=== PATIENT | female | born 1990 | race Caucasian/White ===

== ENCOUNTER 2024-09-09 20:39 | Inpatient (IN) ==
--- OUTSIDE RECORDS SUMMARY | 2024-09-09 20:44 | External Medical Summary | Summary of Care ---
Author Name Unknown Organization [facility] Address [address] [place] [address] Phone [phone] Care Team Providers Care Director Of Accounting Name Role Phone Carlo Redding Primary Care Provider [phone] Encounter Details Date Type Department Care Team (Late st Contact Info) Description 06/07/2024 Population Health External Data Unspecified Department Allergies No known active allergiesdocumented as of this encounter (statuses as of 06/07/2024) Medications Citalopram Hydrobromide 10 MG Oral Tablet (CeleXA) Take by mouth 1 Tablet in the morning. 90 Tablet 2 2 Active Omeprazole 40 MG Oral Capsule Delayed Release (PriLOSEC) Take by mouth 1 Capsule in the morning. 1 hour before the first meal of the day. 90 Capsule 2 2 Active Amphetamine-Dextr oamphet ER 15 MG Oral Capsule Extended Release 24 Hour Take by mouth 1 Capsule in the morning. 30 Capsule 2 Active documented as of this encounter (statuses as of 06/07/2024) Active Problems Problem Noted Date Diagnosed Date Attention deficit disorder 10/01/2021 Gastro-esophageal reflux disease without esophag itis 10/01/2021 Anxiety and depression 10/01/2021 documented as of this encounter (statuses as of 06/07/2024) Social History Tobacco Use Types Packs/Day Years Used Date Smoking Tobacco: Never Smokeless Tobacco: Never Utilities Answer Date Recorded Do you have trouble paying y our heating, water, or electric bill? (Adult - for ages 18 years and over) Not on file 11/01/2023 Is your family able to pay t he heat, water, or electric bill? (Household - for ages 0-17 years) Not on file 11/01/2023 Does your family have access to good internet? (Household - for ages 0-17 years) Not on file 11/01/2023 Social Connections Answer Date Recorded How often do you feel lonely or isolated from those around you? (Adult - for ages 18 years and over) Not on file 11/01/2023 Comments Unknown Sex and Gender Information Value Date Recorded Sex Assigned at Not on file Legal Sex Female 5:41 AM EST Gender Identity Not on file Sexual Orientation Not on file documented as of this encounter Plan of Treatment Health Maintenance Due Date Last Done Comments Depression Monitoring 2001 HIV Screening 2004 Hepatitis C Screening 08/01/2007 Hepatitis B Vaccine (1 of 3 - 19+ 3-dose series) 2008 Pap Smear 2010 Cervical Cancer Screening 08/01/2019 HPV/Co-Test 08/01/2019 COVID-19 Vaccine (2 - 2023-2 5 season) 2024 12/12/2020 Influenza Vaccine (FLU shot) (#1) 2024 DTap/Tdap Vaccines (2 - Td o r Tdap) 10/24/2031 10/23/2021 HPV (Gardasil) Vaccine Aged Out No lo nger eligible based on patient's age to complete this topic MENINGOCOCCAL (MENACTRA/MENVEO) Aged Out No longer eligible based on patient's age to complete this topic Pneumococcal Vaccine: Pediat rics (0 to 5 Years) and At-Risk Patients (6 to 18 Years and 19+ Years) Aged Out No longer eligible b ased on patient's age to complete this topic documented as of this encounter Medical Devices Not on filedocumented as of this encounter Care Teams Director Of Accounting Relationship Specialty Start Date End Date Carlo Redding DO [address] [place] [address] Way GONZALO Lopez [id number] PCP - General Internal Medicine 01/07/22 documented as of this encounter
--- NOTE | 2024-09-09 21:18 | Emergency Department Note ---
Impression & Plan Auditory hallucinations ED Provider Note HISTORY OF PRESENT ILLNESS: Patient is a 34-year-old female presenting with depression and obsessive thoughts. Patient reports for the last few days she has been having intrusive thoughts. Reports that she has thoughts of her niece being stabbed or her dog being stabbed. Denies any plan to do these things. Reports that these seem to be intrusive thoughts that are on a continuous loop in her head. Before she has not been sleeping well. Denies any suicidal or homicidal ideation. She is on bupropion. She has not had any recent medication changes. She denies any previous inpatient psychiatric admissions. She is tearful on examination. Denies any recent triggers for these thoughts. She is new to the area and has not established with outpatient provider at this time. Patient does seem to be responding to internal stimuli. She jerks her head [id number] during conversation and states that this is to "get the voices to go away." ROS: as above PHYSICAL EXAM: Constitutional: Patient appears in no acute distress. HENT: Head: Normocephalic and atraumatic. Eyes: EOMI, PERRL Mouth/Throat: Mucous membranes moist. Neck: Trachea midline. Neck supple. Musculoskeletal: No edema, tenderness or deformity noted. Skin: Warm and dry. No rash, erythema, pallor or cyanosis Psychiatric: Tearful. Flat affect. Neurological: Alert and keenly responsive. CN II-XII grossly intact, moving all extremities equally and fully. MDM: - Vitals signs showed tachycardia - History obtained via patient. History as above. - Chronic conditions affecting care: Depression/anxiety - Differential diagnoses include, but are not limited to: UTI; acute psychosis; drug intoxication; alcohol intoxication - External medical records reviewed. - Laboratory workup interpreted by myself showed slight leukocytosis (WBC 11.81); stable electrolytes; slight hyperglycemia (glucose 67); negative hCG; negative alcohol/acetaminophen/salicylate levels - COVID negative - UA negative for infection. - UDS positive for MDMA. However, patient is on Ritalin. - Inpatient psychiatry unit, [address] is requesting that a CT of the head be obtained, given patient's new auditory hallucinations. - CT head wo contrast negative for acute intracranial pathology. - Patient was agreeable to inpatient psychiatric admission. A 201 was signed. Patient was accepted to inpatient psychiatric unit at [facility], [address] [place] [address], for further evaluation and management. ASSESSMENT AND PLAN: Diagnosis: Auditory hallucinations Plan: admit to [address] [place] [address] Past Med/Surg History Problem List (Updated 09/10/24 @ 00:51 by Ambar Romero MD) Auditory hallucinations (Acute) Generalized anxiety disorder Depression ADHD Surgical History H/O oral surgery Family History Grandmother (Maternal) Myocardial infarction Mother Myocardial infarction Uncle Stroke Denies family history of Ovarian cancer Prostate cancer Breast cancer Colorectal cancer Social History Smoking Status: Former smoker Tobacco Type: Cigarettes Age Started Using Tobacco: 17; Age Quit Using Tobacco: 24; packs per day: 0.25; Second Hand Exposure: No; Hx Alcohol Use: No Hx Substance Use: No Preferred Language: Telugu Visual Impairment: No Limitations Hearing Ability: Normal marital status: Single Current Living Situation: Significant Other current occupational status: unemployed Feels Safe at Home: Yes Childhood Exposure to Second-Hand Smoke: Yes Dental Care, Regularly: Yes Physical Activity Frequency: Daily Seatbelt Use: always Sunscreen Use: Yes Gender Identity: Female Allergies Allergies Allergy/AdvReac Type Severity Reaction Status Date / Time No Known Allergies Allergy Verified 05/17/24 07:44 Home Meds Previous Rx's Medication Instructions Recorded bupropion HCl 150 mg 24 hr tablet, 150 mg PO QAM #90 tabs 05/17/24 extended release fluoxetine 20 mg capsule 20 mg PO DAILY #90 caps 05/17/24 lorazepam 0.5 mg tablet 0.5 mg PO DAILY PRN anxiety #30 07/27/24 tabs dextroamphetamine-amphetamine ER 30 mg PO QAM #30 caps 08/13/24 30 mg 24hr capsule,extend release (Adderall XR) Results & Data (ED) Vital Signs Vital Signs - 24 hr 09/09/24 20:46 09/09/24 22:46 09/10/24 00:00 Temperature 36.3 C L Temperature Source Temporal Artery Scan Pulse Rate 106 H Pulse Rate [Right Finger] 91 H 84 Pulse Rhythm [Right Finger] Regular Pulse Strength [Right Finger] Normal Normal Respiratory Rate 18 18 16 Respiratory Effort / Characteristics Non-Labored Spontaneous Non-Labored Non-Labored Spontaneous Respiratory Depth Normal Normal Normal Respiratory Pattern Regular Regular Blood Pressure 111/80 Blood Pressure [Right Arm] 121/86 115/84 Blood Pressure Mean 90 Blood Pressure Mean [Right Arm] 97 94 Blood Pressure Position [Right Arm] Sitting Sitting Pulse Oximetry 99 100 100 Oxygen Delivery Method Room Air Room Air Room Air Sepsis Recent Fever Within 48 Hours No Sepsis New/Unexplained Change in Mental Status No Sepsis Action Taken by Nursing No Action Required Laboratory Data 09/09/24 21:07 09/09/24 21:07 Lab Results 09/09/24 Range/Units 21:07 WBC 11.81 H (4.8-10.8) K/ul RBC 4.57 (4.20-5.40) M/uL Hgb 14.5 (12.0-16.0) g/dl Hct 42.8 (37.0-47.0) % MCV 93.7 (80.0-100.0) fL MCH 31.7 (25.0-34.0) pg MCHC 33.9 (32.0-36.0) g/dL RDW Std Deviation 41.0 (36.4-46.3) fL RDW Coeff of Osiris 11.9 (11.5-14.5) % Plt Count 407 H (130-400) K/uL MPV 10.0 (9.4-12.4) fL Immature Gran % (Auto) 0.3 % Neut % (Auto) 55.1 % Lymph % (Auto) 34.1 % [place] % (Auto) 9.3 % Eos % (Auto) 0.6 % Baso % (Auto) 0.6 % Neut # (Auto) 6.51 H (1.40-6.50) K/uL Lymph # (Auto) 4.03 H (1.20-3.40) K/uL [place] # (Auto) 1.10 H (0.11-0.59) K/uL Eos # (Auto) 0.07 (0.00-0.50) K/uL Baso # (Auto) 0.07 (0.00-0.20) K/uL Immature Gran # (Auto) 0.03 (0.01-0.20) K/uL Sodium 140 (136-145) mmol/L Potassium 3.7 (3.5-5.1) mmol/L Chloride 104 (98-107) mmol/L Carbon Dioxide 28 (21-32) mmol/L Anion Gap 8 (3-11) BUN 13 (6-23) mg/dl Creatinine 1.02 (0.6-1.2) mg/dl Est Cr Clr Drug Dosing 77.7 ml/min eGFR 73.58 BUN/Creatinine Ratio 12.7 (10-20) Glucose 67 L (70-99(Fasting)) mg/dl Calcium 9.1 (8.6-10.3) mg/dl Total Bilirubin 0.4 (0.2-1.0) mg/dl AST 16 (13-39) U/L ALT 16 (7-52) U/L Alkaline Phosphatase 47 (34-104) U/L Total Protein 7.7 (6.0-8.3) gm/dl Albumin 4.6 (3.4-5.0) gm/dl Globulin 3.1 (2.5-4.0) gm/dl Albumin/Globulin Ratio 1.5 (0.9-2) TSH 1.886 (0.300-4.500) uIu/ml HCG, Qual Negative (Negative) Urine Color Yellow Urine Appearance Cloudy A (Clear) Urine pH 5.0 (4.5-7.5) Ur Specific [place] 1.035 H (1.000-1.030) Urine Protein Trace H (Negative) Urine Glucose (UA) Negative (Negative) Urine Ketones Trace H (Negative) Urine Blood Trace H (Negative) Urine Nitrite Negative (Negative) Urine Bilirubin Negative (Negative) Urine Urobilinogen Negative (Negative) Ur Leukocyte Esterase Negative (Negative) Urine WBC (Auto) 0-5 (0-5) /hpf Urine RBC (Auto) 0-2 (0-2) /hpf U Hyaline Cast (Auto) 0-2 (0-2) /lpf U Epithel Cells (Auto) 11-20 H (0-2) /hpf Urine Bacteria (Auto) None Seen (None Seen) Calcium Oxalate Crystal Present A (None Prsent) Salicylates < 3.0 L (3.0-30) mg/dl Urine Opiates Screen Neg (Neg) Ur Methadone, Qual Neg (Neg) Urine Fentanyl Screen Neg (Neg) Acetaminophen < 3 L (10-30) ug/ml Urine Barbiturates Neg (Neg) Ur Phencyclidine (PCP) Neg (Neg) U Amphetamin/Meth Scrn Neg (Neg) MDMA (Ecstasy) Screen Pos H (Neg) U Benzodiazepines Scrn Neg (Neg) Ur Cocaine Metabolite Neg (Neg) U Marijuana (THC) Screen Neg (Neg) Ethyl Alcohol mg/dL < 10.0 (<10.0) mg/dl SARS-CoV-2, RNA, NAAT NEGATIVE (NEGATIVE) Imaging Data Radiologist's Impression: Head CT 09/09/24 23:53 EXAM: CT head/brain wo con CLINICAL HISTORY: auditory hallucination TECHNIQUE: Multiple axial images are obtained from the skull base to the vertex without contrast. CT scan was performed according to ALARA (as low as reasonably achievable). COMPARISON: none FINDINGS: The brain shows normal morphology, attenuation, and volume for age. No evidence of space occupying lesion, hemorrhage, edema, mass effect, midline shift, extra axial collection, or hydrocephalus is noted. Ventricles, sulci, and basal cisterns are symmetric and normal in size and configuration. The tenorio-white matter differentiation is preserved. Visualized paranasal sinuses and mastoid air cells are well aerated. Orbital contents are within normal limits. Bony structures are intact. IMPRESSION: 1. No evidence of acute intracranial abnormality is demonstrated Electronically signed by Vasquez Medrano 09-10-2024 12:24 AM Discharge Plan Visit Data Chief Complaint: Mental Health Evaluation Stated Complaint: MENTAL HEALTH ISSUES ED Provider: Ambar Romero Discharge Problem: Auditory hallucinations Forms Stand Alone Forms: [facility], Suicide Prevention Resources Prescriptions Prescriptions: No Action lorazepam 0.5 mg tablet 0.5 mg PO DAILY PRN (Reason: anxiety) Qty: 30 0RF dextroamphetamine-amphetamine [Adderall XR] 30 mg capsule,extended release 24hr 30 mg PO QAM Qty: 30 0RF fluoxetine 20 mg capsule 20 mg PO DAILY Qty: 90 3RF bupropion HCl 150 mg tablet extended release 24 hr 150 mg PO QAM Qty: 90 3RF Referrals Referrals: Suri Cheng MD [Primary Care Provider] -
[2024-09-09 21:38] LABS: Appearance Urine Cloudy (Clear); Bacteria Urine Automated None Seen (None Seen); Bilirubin Urine Negative (Negative); Blood Urine Trace (Negative); Calcium Oxalate Crystals Urine Present (None Prsent); Cast Urine Automated 0-2 /lpf (0-2); Color Urine Yellow; Glucose Urine UA Negative (Negative); Ketones Urine Trace (Negative); Leukocyte Esterase Urine Negative (Negative); Nitrite Urine Negative (Negative); Protein Urine Trace (Negative); RBC Urine Automated 0-2 /hpf (0-2); Specific Gravity Urine 1.035 (1.000-1.030); Urobilinogen Urine Negative (Negative); WBC Urine Automated 0-5 /hpf (0-5)
[2024-09-09 21:40] LABS: Albumin Globulin Ratio 1.5 (0.9-2); Albumin Level 4.6 gm/dl (3.4-5.0); BUN Creatinine Ratio 12.7 (10-20); Bilirubin,Total 0.4 mg/dl (0.2-1.0); Calcium 9.1 mg/dl (8.6-10.3); Creatinine Clr Calc Pharmacy 77.7 ml/min; Globulin 3.1 gm/dl (2.5-4.0); Potassium 3.7 mmol/L (3.5-5.1); Total Protein 7.7 gm/dl (6.0-8.3)
[2024-09-09 21:41] LABS: Acetaminophen < 3 ug/ml (10-30); Salicylate < 3.0 mg/dl (3.0-30)
[2024-09-09 21:43] LABS: Pregnancy Test, Serum Negative (Negative)
[2024-09-09 21:52] LABS: Basophils # (auto) 0.07 K/uL (0.00-0.20); Basophils % (auto) 0.6 %; Eosinophils # (auto) 0.07 K/uL (0.00-0.50); Eosinophils % (auto) 0.6 %; Hematocrit (blood only) 42.8 % (37.0-47.0); Hemoglobin 14.5 g/dl (12.0-16.0); Immature Granulocytes # (auto) 0.03 K/uL (0.01-0.20); Immature Granulocytes % (auto) 0.3 %; Lymphocytes # (auto) 4.03 K/uL (1.20-3.40); Lymphocytes % (auto) 34.1 %; Mean Corpuscular Hemoglobin 31.7 pg (25.0-34.0); Mean Corpuscular Hgb Conc 33.9 g/dL (32.0-36.0); Mean Corpuscular Volume 93.7 fL (80.0-100.0); Monocytes % (auto) 9.3 %; Neutrophils # (auto) 6.51 K/uL (1.40-6.50); Neutrophils % (auto) 55.1 %; Platelet Count 407 K/uL (130-400); RDW Coefficient of Variation 11.9 % (11.5-14.5); Red Blood Count 4.57 M/uL (4.20-5.40); White Blood Count 11.81 K/ul (4.8-10.8)
[2024-09-09 21:54] LABS: Thyroid Stimulating Hormone 1.886 uIu/ml (0.300-4.500)
[2024-09-09 22:28] LABS: Amphetamines+Metham, Urine Neg (Neg); Barbiturates, Urine Neg (Neg); Benzodiazepine, Urine Neg (Neg); Cocaine, Urine Neg (Neg); Fentanyl, Urine Neg (Neg); MDMA (Ecstacy), Urine Pos (Neg); Marijuana, Urine Neg (Neg); Methadone, Urine Neg (Neg); Opiate, Urine Neg (Neg); Phencyclidine, Urine Neg (Neg)
[2024-09-10 00:08] VITALS: RESP 16
--- NOTE | 2024-09-10 00:24 | CT Scan Report ---
EXAM: CT head/brain wo con CLINICAL HISTORY: auditory hallucination TECHNIQUE: Multiple axial images are obtained from the skull base to the vertex without contrast. CT scan was performed according to ALARA (as low as reasonably achievable). COMPARISON: none FINDINGS: The brain shows normal morphology, attenuation, and volume for age. No evidence of space occupying lesion, hemorrhage, edema, mass effect, midline shift, extra axial collection, or hydrocephalus is noted. Ventricles, sulci, and basal cisterns are symmetric and normal in size and configuration. The tenorio-white matter differentiation is preserved. Visualized paranasal sinuses and mastoid air cells are well aerated. Orbital contents are within normal limits. Bony structures are intact. IMPRESSION: 1. No evidence of acute intracranial abnormality is demonstrated Electronically signed by Vasquez Medrano 09-10-2024 12:24 AM
[2024-09-10] MEDS ORDERED: MAGNESIUM HYDROXIDE SUSP 30 ML UDC PO PRN (01:37)
[2024-09-10] MEDS ORDERED: BISMUTH SUBSALICYLATE 262 MG CHEW PO PRN (01:37)
[2024-09-10] MEDS ORDERED: ALUMINUM/MAGNESIUM SUSP 30 ML UDC PO PRN (01:37)
[2024-09-10] MEDS ORDERED: ACETAMINOPHEN 325 MG TAB PO PRN (01:37)
[2024-09-10] MEDS ORDERED: LORazepam 1 MG TAB PO PRN (01:44)
[2024-09-10] MEDS: LORazepam 1 MG TAB PO ONE (01:56)
[2024-09-10] MEDS: VENLAFAXINE HCL XR 37.5 MG CAPXR PO SCH (14:26)
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
[2024-09-10] MEDS ORDERED: CALCIUM CARBONATE 500 MG CHEWABLE TAB PO PRN (16:20)
[2024-09-10] MEDS: traZODone HCL 50 MG TAB PO SCH (21:02)
[2024-09-10] MEDS: LORazepam 1 MG TAB PO SCH (21:02)
[2024-09-11 06:16] VITALS: O2SAT 98
[2024-09-11 07:31] LABS: Chol HDL Ratio 3.3 (0-5)
[2024-09-11 08:12] LABS: Estimated Average Glucose 105 mg/dl; Hemoglobin A1C 5.3 % (4.5-5.6)
[2024-09-11] MEDS ORDERED: LORazepam 0.5 MG TAB PO PRN (12:37)
--- NOTE | 2024-09-11 14:24 | Psychiatric Progress Note ---
Date of Service September 11, 2024 Impression / Recommendations Impression ALONA CH is a 34-year-old F who currently lives in with boyfriend, has a history of MARCELO, MDD, ADHD, and was admitted on 09/10/24 01:16 on a 201 voluntary commitment for worsening anxiety, dissociative symptoms, auditory hallucinations, motor tics, sleep dysfunction in the context of flashbacks of her mother who unexpectedly in her arms in 2021 from a myocardial infarction. Presentation concerning for PTSD related to past trauma (higher suspicion given triggering memories, symptom profile, timeline, intact reality testing) vs Bipolar mixed episode vs MDD severe epi w/ psychosis. She reports an increase in anxiety, worsening mood, decreased sleep, dissociation, and recent motor tics/AH in relation to organizing her mother's belongings in the past month. These episodes have occurred in the past with similar triggers (memories of mother) however have become more symptomatic, longer duration, and more intense in severity. A:Patient is doing well with quick resolution of dissociation, auditory hallucinations and has been getting proper sleep with lorazepam. High suspicion for patient being an current major depressive episode and having triggering PTSD anxiety. Patient was counseled about her condition and provided a handout on effective therapies for PTSD. Labs reviewed and A1c, vitamin D, lipid panel unremarkable. Plan to decrease nightly lorazepam dose and to optimize venlafaxine dose. Overall, I spent a total of 40 minutes with this case including review of chart records, nursing report, review of lab work, direct evaluation of the patient at bedside, counseling the patient, multidisciplinary team meeting, orders, and documentation in the electronic health record. (1) Facial tic: (2) Auditory hallucinations: (3) Insomnia: (4) Dissociation: (5) Post traumatic stress disorder (PTSD): (6) MDD (major depressive disorder), recurrent episode, severe: (7) ADHD: (8) GERD (gastroesophageal reflux disease): Plan 09/11/2024: Decrease lorazepam to 0.5 mg at bedtime and 0.5 mg as needed. Increase venlafaxine ER to 75 mg daily. Continue trazodone. 09/10/24:The patient was admitted to the [facility] ([facility] unit) on q15 min checks (behavioral with suicide precautions) for safety. The patient will participate in group, recreational, and milieu therapies and will be offered additional individual and family sessions as clinically appropriate. -Hold home Bupropion, Amphetamines -Start Venlfaxine ER 37.5mg QD -Start Lorazepam 1mg HS -Start Trazodone 50mg HS -Lorazepam 1mg Q6H PRN for anxiety -Labs: HgbA1C, fasting lipids, Vit D -Questionnaires: Gray borderline personality screener, MARCELO-7, international trauma questionnaire, BALA questionnaire Inventory Assets Strengths: fair insight, intelligent Needs: outpatient connection, trauma counseling Suicide Risk Level Suicide Risk Level: Low (q15 min observation checks) Risk Factors Assessment Male: No : Yes Do You Have Access To A Gun?: Yes Health Problems: No Mental Health Diagnoses: Yes Substance Use Disorders: No Previous Attempt: No Family History of Suicide: No Previous Psychiatric Hospitalization: No Hopelessness: Yes Protective Factors Assessment Baptism Beliefs: No : No Responsible for Young Children: No Employed: No Stable Relationships: Yes Supportive Family: Yes Good Rapport with Provider: Yes Absence of Any Risk Factors Above: No Interval History Identifying Information ALONA CH is a 34-year-old F who currently lives in with boyfriend, has a history of MARCELO, MDD, ADHD, and was admitted on 09/10/24 01:16 on a 201 voluntary commitment for worsening anxiety, dissociative symptoms, auditory hallucinations, motor tics, sleep dysfunction in the context of flashbacks of her mother who unexpectedly in her arms in 2021 from a myocardial infarction. 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 food saved, packaged, and placed in pt fridge at this time. Subjective Subjective Patient was seen & assessed and interval progress reviewed with treatment team nursing and social work Overnight patient slept 6.5 hours. Completed safety plan. Stable behaviors. On interview she reports sleeping well and was able to maintain sleep. Denies any auditory hallucinations. Reports having some negative thinking this morning and was having some focal tics where she would shake her head [id number]. Denies any dissociative symptoms. Denies any physical symptoms of anxiety. Denies any medication side effects from newly initiated venlafaxine. Reports father had a history of PTSD where he would get nightmares and hypervigilance. Physical Exam Mental Examination Appearance: Well Groomed Eye Contact: Maintains Eye Contact Motor Behavior: Unremarkable Speech: Soft Mood: Euthymic and Calm Affect: Congruent and Constricted Thought Process: Intact and Linear Thought Content: Intact and Racing Hallucinations: Auditory Insight: Fair Judgement: Fair Vital Signs (Past 24 Hours) Last Vital Signs Temp 36.6 C 09/11/24 06:13 Pulse 70 09/11/24 06:15 Resp 16 09/11/24 06:13 BP 113/80 09/11/24 06:15 Pulse Ox 98 09/11/24 06:13 O2 Del Method Room Air 09/11/24 06:13 Results & Data ([facility]) Laboratory Results Laboratory Results - last 24 hr 09/11/24 06:50 Estimat Average Glucose 105 Hemoglobin A1c 5.3 Triglycerides 116 Cholesterol 151 LDL Cholesterol, Calc 82 VLDL Cholesterol, Calc 23 HDL Cholesterol 46 Cholesterol/HDL Ratio 3.3 25-OH Vitamin D Total 53.8 Current Inpatient Medications Current Inpatient Medications: Current Inpatient Medications Acetaminophen (Acetaminophen 325 Mg Tab) 650 mg PO Q4H PRN PRN Reason: Headache or Minor Fever Stop: 10/10/24 01:36 Al Hydrox/Mg Hydrox/Simethicone (Aluminum/Magnesium Susp 30 Ml Udc) 30 ml PO Q4H PRN PRN Reason: GI Upset Stop: 10/10/24 01:36 Bismuth Subsalicylate (Bismuth Subsalicylate 262 Mg Chew) 2 tab PO Q30M PRN PRN Reason: Loose Stool/Diarrhea Stop: 10/10/24 01:36 Calcium Carbonate (Calcium Carbonate 500 Mg Chewable Tab) 1,000 mg PO TID PRN PRN Reason: Indigestion Stop: 10/10/24 16:19 Hydroxyzine HCl (Hydroxyzine Hcl 25 Mg Tab) 50 mg PO Q6H PRN PRN Reason: anxiety, insomnia Stop: 10/10/24 13:30 Lorazepam (Lorazepam 0.5 Mg Tab) 0.5 mg PO PM ANA LILIA Stop: 10/11/24 20:59 Lorazepam (Lorazepam 0.5 Mg Tab) 0.5 mg PO Q6 PRN PRN Reason: Anxiety Stop: 10/10/24 01:43 Magnesium Hydroxide (Magnesium Hydroxide Susp 30 Ml Udc) 30 ml PO DAILY PRN PRN Reason: Constipation Stop: 10/10/24 01:36 Sodium Chloride (Sodium Chloride 0.65% Na Soln 45 Ml ([place])) 1 - 2 sprays NA PRN PRN PRN Reason: Nasal Dryness/Congestion Stop: 10/10/24 01:36 Trazodone HCl (Trazodone Hcl 50 Mg Tab) 50 mg PO PM ANA LILIA Stop: 10/11/24 20:59 Venlafaxine HCl (Venlafaxine Hcl Xr 75 Mg Capxr) 75 mg PO QAM ANA LILIA Stop: 10/12/24 08:59 Mental Health & Subst Abuse Tx Psychiatrist Psychiatrist's Therapist Name of Therapist: N/A Pharmacist Critical Care Name of Pharmacist Critical Care: N/A Post Discharge Appointments Primary Care Physician Name Of Family Doctor/PCP: [facility] - Dr. Washburn Primary Care Date of Future Appointment with PCP: 2025 Provider Appointment Comment: Follow up as needed Contact Information Discharge Discharge Address: [address] [place] [address]
[2024-09-11] MEDS: LORazepam 0.5 MG TAB PO SCH (20:47)
[2024-09-11] MEDS: traZODone HCL 50 MG TAB PO SCH (20:47)
[2024-09-12] MEDS: VENLAFAXINE HCL XR 75 MG CAPXR PO SCH (08:54)
--- NOTE | 2024-09-12 13:07 | Psychiatric Progress Note ---
Date of Service September 12, 2024 Impression / Recommendations Impression ALONA CH is a 34-year-old F who currently lives in with boyfriend, has a history of MARCELO, MDD, ADHD, and was admitted on 09/10/24 01:16 on a 201 voluntary commitment for worsening anxiety, dissociative symptoms, auditory hallucinations, motor tics, sleep dysfunction in the context of flashbacks of her mother who unexpectedly in her arms in 2021 from a myocardial infarction. Presentation concerning for PTSD related to past trauma (higher suspicion given triggering memories, symptom profile, timeline, intact reality testing) vs Bipolar mixed episode vs MDD severe epi w/ psychosis. She reports an increase in anxiety, worsening mood, decreased sleep, dissociation, and recent motor tics/AH in relation to organizing her mother's belongings in the past month. These episodes have occurred in the past with similar triggers (memories of mother) however have become more symptomatic, longer duration, and more intense in severity. A:Patient is doing well with quick resolution of dissociation, auditory hallucinations and has been getting proper sleep with lorazepam. High suspicion for patient being an current major depressive episode and having triggering PTSD anxiety. Patient was counseled about her condition and provided a handout on effective therapies for PTSD. Labs reviewed and A1c, vitamin D, lipid panel unremarkable. Plan to decrease nightly lorazepam dose and to optimize venlafaxine dose. Overall, I spent a total of 30 minutes with this case including review of chart records, nursing report, review of lab work, direct evaluation of the patient at bedside, counseling the patient, multidisciplinary team meeting, orders, and documentation in the electronic health record. (1) Facial tic: Not evident today. Will continue to monitor. (2) Auditory hallucinations: Will continue to closely monitor. (3) Insomnia: Initial insomnia. Will monitor sleep and adjust medication as needed. (4) Dissociation: Not reported today (5) Post traumatic stress disorder (PTSD): Endorses flashbacks. (6) MDD (major depressive disorder), recurrent episode, severe: Mood remains depressed. (7) ADHD: Plan 09/12/24: Continue current medication and current level of observation. 09/11/2024: Decrease lorazepam to 0.5 mg at bedtime and 0.5 mg as needed. Increase venlafaxine ER to 75 mg daily. Continue trazodone. 09/10/24:The patient was admitted to the [facility] (community hospital inpatient mental health unit) on q15 min checks (behavioral with suicide precautions) for safety. The patient will participate in group, recreational, and milieu therapies and will be offered additional individual and family sessions as clinically appropriate. -Hold home Bupropion, Amphetamines -Start Venlfaxine ER 37.5mg QD -Start Lorazepam 1mg HS -Start Trazodone 50mg HS -Lorazepam 1mg Q6H PRN for anxiety -Labs: HgbA1C, fasting lipids, Vit D -Questionnaires: Gray borderline personality screener, MARCELO-7, international trauma questionnaire, BALA questionnaire Inventory Assets Strengths: fair insight, intelligent Needs: outpatient connection, trauma counseling Suicide Risk Level Suicide Risk Level: Low (q15 min observation checks) Risk Factors Assessment Male: No : Yes Do You Have Access To A Gun?: Yes Health Problems: No Mental Health Diagnoses: Yes Substance Use Disorders: No Previous Attempt: No Family History of Suicide: No Previous Psychiatric Hospitalization: No Hopelessness: Yes Protective Factors Assessment Confucianism Beliefs: No : No Responsible for Young Children: No Employed: No Stable Relationships: Yes Supportive Family: Yes Good Rapport with Provider: Yes Absence of Any Risk Factors Above: No Interval History Identifying Information ALONA CH is a 34-year-old F who currently lives in with boyfriend, has a history of MARCELO, MDD, ADHD, and was admitted on 09/10/24 01:16 on a 201 voluntary commitment for worsening anxiety, dissociative symptoms, auditory hallucinations, motor tics, sleep dysfunction in the context of flashbacks of her mother who unexpectedly in her arms in 2021 from a myocardial infarction. Chief Complaint "I was having flashbacks". 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 food saved, packaged, and placed in pt fridge at this time. Subjective Subjective Patient was seen & assessed and interval progress reviewed with treatment team. She continues to report depressed mood, and flashbacks to her mom's unexpected . She denied side effects from her current medication. Auditory hallucinations not as intense. However, she remains internally preoccupied. She denied suicidal or homicidal ideation, intent or plan. No overt tics noted during today's visit. Physical Exam Mental Examination Appearance: Well Groomed Eye Contact: Maintains Eye Contact Motor Behavior: Unremarkable Speech: Soft Mood: Euthymic and Calm Affect: Congruent and Constricted Thought Process: Intact and Linear Thought Content: Intact and Racing Hallucinations: Auditory Insight: Fair Judgement: Fair Vital Signs (Past 24 Hours) Last Vital Signs Temp 36.5 C 09/12/24 06:00 Pulse 70 09/11/24 06:15 Resp 16 09/12/24 06:00 BP 90/59 L 09/12/24 06:29 Pulse Ox 98 09/12/24 06:00 O2 Del Method Room Air 09/12/24 06:00 Results & Data ([facility]) Current Inpatient Medications Current Inpatient Medications: Current Inpatient Medications Acetaminophen (Acetaminophen 325 Mg Tab) 650 mg PO Q4H PRN PRN Reason: Headache or Minor Fever Stop: 10/10/24 01:36 Al Hydrox/Mg Hydrox/Simethicone (Aluminum/Magnesium Susp 30 Ml Udc) 30 ml PO Q4H PRN PRN Reason: GI Upset Stop: 10/10/24 01:36 Bismuth Subsalicylate (Bismuth Subsalicylate 262 Mg Chew) 2 tab PO Q30M PRN PRN Reason: Loose Stool/Diarrhea Stop: 10/10/24 01:36 Calcium Carbonate (Calcium Carbonate 500 Mg Chewable Tab) 1,000 mg PO TID PRN PRN Reason: Indigestion Stop: 10/10/24 16:19 Hydroxyzine HCl (Hydroxyzine Hcl 25 Mg Tab) 50 mg PO Q6H PRN PRN Reason: anxiety, insomnia Stop: 10/10/24 13:30 Lorazepam (Lorazepam 0.5 Mg Tab) 0.5 mg PO PM ANA LILIA Stop: 10/11/24 20:59 Last Admin: 09/11/24 20:47 Dose: 0.5 mg Lorazepam (Lorazepam 0.5 Mg Tab) 0.5 mg PO Q6 PRN PRN Reason: Anxiety Stop: 10/10/24 01:43 Magnesium Hydroxide (Magnesium Hydroxide Susp 30 Ml Udc) 30 ml PO DAILY PRN PRN Reason: Constipation Stop: 10/10/24 01:36 Sodium Chloride (Sodium Chloride 0.65% Na Soln 45 Ml ([place])) 1 - 2 sprays NA PRN PRN PRN Reason: Nasal Dryness/Congestion Stop: 10/10/24 01:36 Trazodone HCl (Trazodone Hcl 50 Mg Tab) 50 mg PO PM ANA LILIA Stop: 10/11/24 20:59 Last Admin: 09/11/24 20:47 Dose: 50 mg Venlafaxine HCl (Venlafaxine Hcl Xr 75 Mg Capxr) 75 mg PO QAM ANA LILIA Stop: 10/12/24 08:59 Last Admin: 09/12/24 08:54 Dose: 75 mg Mental Health & Subst Abuse Tx Psychiatrist Name of Psychiatrist: Eleanor Psychiatrist's Therapist Name of Therapist: N/A Third Rail Installer Name of Third Rail Installer: N/A Post Discharge Appointments Primary Care Physician Name Of Family Doctor/PCP: [facility] - Dr. Washburn Primary Care Date of Future Appointment with PCP: 2025 Provider Appointment Comment: Follow up as needed Contact Information Discharge Discharge Address: [address] [place] [address] (6) MDD (major depressive disorder), recurrent episode, severe Psychotic features: with psychotic features Qualified Code(s): F33.3 - Major depressive disorder, recurrent, severe with psychotic symptoms (7) ADHD Attention deficit-hyperactivity disorder type: unspecified Qualified Code(s): F90.9 - Attention-deficit hyperactivity disorder, unspecified type
--- NOTE | 2024-09-13 08:22 | Psychiatric Progress Note ---
Date of Service September 13, 2024 Impression / Recommendations Impression ALONA CH is a 34-year-old F who currently lives in with boyfriend, has a history of MARCELO, MDD, ADHD, and was admitted on 09/10/24 01:16 on a 201 voluntary commitment for worsening anxiety, dissociative symptoms, auditory hallucinations, motor tics, sleep dysfunction in the context of flashbacks of her mother who unexpectedly in her arms in 2021 from a myocardial infarction. Presentation concerning for PTSD related to past trauma (higher suspicion given triggering memories, symptom profile, timeline, intact reality testing) vs Bipolar mixed episode vs MDD severe epi w/ psychosis. She reports an increase in anxiety, worsening mood, decreased sleep, dissociation, and recent motor tics/AH in relation to organizing her mother's belongings in the past month. These episodes have occurred in the past with similar triggers (memories of mother) however have become more symptomatic, longer duration, and more intense in severity. A:Patient is doing well with quick resolution of dissociation, auditory hallucinations and has been getting proper sleep with lorazepam. High suspicion for patient being an current major depressive episode and having triggering PTSD anxiety. Patient was counseled about her condition and provided a handout on effective therapies for PTSD. Labs reviewed and A1c, vitamin D, lipid panel unremarkable. Plan to decrease nightly lorazepam dose and to optimize venlafaxine dose. Overall, I spent a total of 30 minutes with this case including review of chart records, nursing report, review of lab work, direct evaluation of the patient at bedside, counseling the patient, multidisciplinary team meeting, orders, and documentation in the electronic health record. (1) Facial tic: Not evident today. Will continue to monitor. (2) Auditory hallucinations: Will continue to closely monitor. (3) Insomnia: Initial insomnia. Will monitor sleep and adjust medication as needed. (4) Dissociation: Not reported today (5) Post traumatic stress disorder (PTSD): Endorses flashbacks. (6) MDD (major depressive disorder), recurrent episode, severe: Mood remains depressed. (7) ADHD: Plan 09/13/24: Increase Effexor to 112.5mg daily. Add Prazosin 1 mg qhs for nightmares. Discussed risks, benefits and side effects, including hypotension. 09/12/24: Continue current medication and current level of observation. 09/11/2024: Decrease lorazepam to 0.5 mg at bedtime and 0.5 mg as needed. Increase venlafaxine ER to 75 mg daily. Continue trazodone. 09/10/24:The patient was admitted to the [facility] ([facility] mental health unit) on q15 min checks (behavioral with suicide precautions) for safety. The patient will participate in group, recreational, and milieu therapies and will be offered additional individual and family sessions as clinically appropriate. -Hold home Bupropion, Amphetamines -Start Venlfaxine ER 37.5mg QD -Start Lorazepam 1mg HS -Start Trazodone 50mg HS -Lorazepam 1mg Q6H PRN for anxiety -Labs: HgbA1C, fasting lipids, Vit D -Questionnaires: Gray borderline personality screener, MARCELO-7, international trauma questionnaire, BALA questionnaire Inventory Assets Strengths: fair insight, intelligent Needs: outpatient connection, trauma counseling Suicide Risk Level Suicide Risk Level: Low (q15 min observation checks) Risk Factors Assessment Male: No : Yes Do You Have Access To A Gun?: Yes Health Problems: No Mental Health Diagnoses: Yes Substance Use Disorders: No Previous Attempt: No Family History of Suicide: No Previous Psychiatric Hospitalization: No Hopelessness: Yes Protective Factors Assessment Jainism Beliefs: No : No Responsible for Young Children: No Employed: No Stable Relationships: Yes Supportive Family: Yes Good Rapport with Provider: Yes Absence of Any Risk Factors Above: No Interval History Identifying Information ALONA CH is a 34-year-old F who currently lives in with boyfriend, has a history of MARCELO, MDD, ADHD, and was admitted on 09/10/24 01:16 on a 201 voluntary commitment for worsening anxiety, dissociative symptoms, auditory zaman llucinations, motor tics, sleep dysfunction in the context of flashbacks of her mother who unexpectedly in her arms in 2021 from a myocardial infarction. Chief Complaint "I was having hallucinations and tics". 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 food saved, packaged, and placed in pt fridge at this time. Subjective Subjective Patient was seen & assessed and interval progress reviewed with [treatment team] [nursing and social work] She continues to experience motor tics. Slept 8.45hrs. Still having intrusive thoughts. No flashbacks but she endorses insomnia related to nightmares at this time. She reports AH without intent or plan. No delusional beliefs, SI, HI reported. Mood is improved but still sad. Physical Exam Mental Examination Appearance: Well Groomed Eye Contact: Maintains Eye Contact Motor Behavior: Unremarkable Speech: Soft Mood: Euthymic and Calm Affect: Congruent and Constricted Thought Process: Intact and Linear Thought Content: Intact and Racing Hallucinations: Auditory Insight: Fair Judgement: Fair Vital Signs (Past 24 Hours) Last Vital Signs Temp 36.4 C L 09/13/24 06:33 Pulse 78 09/13/24 06:33 Resp 16 09/13/24 06:33 BP 89/57 L 09/13/24 06:33 Pulse Ox 98 09/12/24 06:00 O2 Del Method Room Air 09/12/24 06:00 Results & Data ([facility]) Current Inpatient Medications Current Inpatient Medications: Current Inpatient Medications Acetaminophen (Acetaminophen 325 Mg Tab) 650 mg PO Q4H PRN PRN Reason: Headache or Minor Fever Stop: 10/10/24 01:36 Al Hydrox/Mg Hydrox/Simethicone (Aluminum/Magnesium Susp 30 Ml Udc) 30 ml PO Q4H PRN PRN Reason: GI Upset Stop: 10/10/24 01:36 Bismuth Subsalicylate (Bismuth Subsalicylate 262 Mg Chew) 2 tab PO Q30M PRN PRN Reason: Loose Stool/Diarrhea Stop: 10/10/24 01:36 Calcium Carbonate (Calcium Carbonate 500 Mg Chewable Tab) 1,000 mg PO TID PRN PRN Reason: Indigestion Stop: 10/10/24 16:19 Hydroxyzine HCl (Hydroxyzine Hcl 25 Mg Tab) 50 mg PO Q6H PRN PRN Reason: anxiety, insomnia Stop: 10/10/24 13:30 Lorazepam (Lorazepam 0.5 Mg Tab) 0.5 mg PO PM ANA LILIA Stop: 10/11/24 20:59 Last Admin: 09/12/24 20:33 Dose: 0.5 mg Lorazepam (Lorazepam 0.5 Mg Tab) 0.5 mg PO Q6 PRN PRN Reason: Anxiety Stop: 10/10/24 01:43 Magnesium Hydroxide (Magnesium Hydroxide Susp 30 Ml Udc) 30 ml PO DAILY PRN PRN Reason: Constipation Stop: 10/10/24 01:36 Sodium Chloride (Sodium Chloride 0.65% Na Soln 45 Ml ([place])) 1 - 2 sprays NA PRN PRN PRN Reason: Nasal Dryness/Congestion Stop: 10/10/24 01:36 Trazodone HCl (Trazodone Hcl 50 Mg Tab) 50 mg PO PM ANA LILIA Stop: 10/11/24 20:59 Last Admin: 09/12/24 20:33 Dose: 50 mg Venlafaxine HCl (Venlafaxine Hcl Xr 75 Mg Capxr) 75 mg PO QAM ANA LILIA Stop: 10/12/24 08:59 Last Admin: 09/12/24 08:54 Dose: 75 mg Mental Health & Subst Abuse Tx Psychiatrist Name of Psychiatrist: Eleanor Psychiatrist's Therapist Name of Therapist: N/A Toxicology Teacher Name of Toxicology Teacher: N/A Post Discharge Appointments Primary Care Physician Name Of Family Doctor/PCP: [facility] - Dr. Washburn Primary Care Date of Future Appointment with PCP: 2025 Provider Appointment Comment: Follow up as needed Contact Information Discharge Discharge Address: [address] [place] [address] (3) Insomnia Insomnia type: unspecified Qualified Code(s): G47.00 - Insomnia, unspecified (6) MDD (major depressive disorder), recurrent episode, severe Psychotic features: with psychotic features Qualified Code(s): F33.3 - Major depressive disorder, recurrent, severe with psychotic symptoms (7) ADHD Attention deficit-hyperactivity disorder type: unspecified Qualified Code(s): F90.9 - Attention-deficit hyperactivity disorder, unspecified type
--- NOTE | 2024-09-13 11:29 | Psychiatric Progress Note ---
Date of Service September 13, 2024 Impression / Recommendations Impression 34-year-old F who currently lives in with boyfriend, has a history of MARCELO, MDD, ADHD, and was admitted on 09/10/24 01:16 on a 201 voluntary commitment for worsening anxiety, dissociative symptoms, auditory hallucinations, motor tics, sleep dysfunction in the context of flashbacks of her mother who unexpectedly in her arms in 2021 from a myocardial infarction. Differentials include PTSD vs Bipolar mixed episode vs MDD severe epi w/ psychosis. She reports an increase in anxiety, worsening mood, decreased sleep, dissociation, and recent motor tics/AH in relation to organizing her mother's belongings in the past month. These episodes have occurred in the past with similar triggers (memories of mother) however have become more symptomatic, longer duration, and more intense in severity. A:Patient is doing well with quick resolution of dissociation, auditory hallucinations and has been getting proper sleep with lorazepam. High suspicion for patient being an current major depressive episode and having triggering PTSD anxiety. Patient was counseled about her condition and provided a handout on effective therapies for PTSD. Labs reviewed and A1c, vitamin D, lipid panel unremarkable. Plan to decrease nightly lorazepam dose and to optimize venlafaxine dose. Overall, I spent a total of 35 minutes with this case including review of chart records, nursing report, review of lab work, direct evaluation of the patient at bedside, counseling the patient, multidisciplinary team meeting, orders, and documentation in the electronic health record. (1) Facial tic: Not evident today. Will continue to monitor. (2) Auditory hallucinations: Denied (3) Dissociation: Not reported today (4) Post traumatic stress disorder (PTSD): Endorses flashbacks. (5) MDD (major depressive disorder), recurrent episode, severe: Mood remains depressed. (6) ADHD: Plan 09/13/24: Increase Effexor to 112.5 mg daily. Start Prazosin 1mg po qhs for PTSD-related nightmares. Discussed risks, benefits and side effects. Continue other medication at current doses. Monitor for tics. 09/12/24: Continue current medication and current level of observation. 09/11/2024: Decrease lorazepam to 0.5 mg at bedtime and 0.5 mg as needed. Increase venlafaxine ER to 75 mg daily. Continue trazodone. 09/10/24:The patient was admitted to the [facility] ([facility] inpatient mental health unit) on q15 min checks (behavioral with suicide precautions) for safety. The patient will participate in group, recreational, and milieu therapies and will be offered additional individual and family sessions as clinically appropriate. -Hold home Bupropion, Amphetamines -Start Venlfaxine ER 37.5mg QD -Start Lorazepam 1mg HS -Start Trazodone 50mg HS -Lorazepam 1mg Q6H PRN for anxiety -Labs: HgbA1C, fasting lipids, Vit D -Questionnaires: Gray borderline personality screener, MARCELO-7, international trauma questionnaire, BALA questionnaire Inventory Assets Strengths: fair insight, intelligent Needs: outpatient connection, trauma counseling Suicide Risk Level Suicide Risk Level: Low (q15 min observation checks) Risk Factors Assessment Male: No : Yes Do You Have Access To A Gun?: Yes Health Problems: No Mental Health Diagnoses: Yes Substance Use Disorders: No Previous Attempt: No Family History of Suicide: No Previous Psychiatric Hospitalization: No Hopelessness: Yes Protective Factors Assessment Quaker Beliefs: No : No Responsible for Young Children: No Employed: No Stable Relationships: Yes Supportive Family: Yes Good Rapport with Provider: Yes Absence of Any Risk Factors Above: No Interval History Identifying Information 34-year-old F who moved to [place] from [place] 8 months ago. She is currently living with her boyfriend. Pt reports a lengthy psychiatric history, dating back to her early teens. She is diagnosed with MARCELO, MDD, ADHD, and was admitted on 09/10/24 01:16 on a 201 voluntary commitment for worsening anxiety, dissociative symptoms, auditory hallucinations, motor tics, sleep dysfunction in the context of flashbacks of her mother who unexpectedly in her arms in 2021 from a myocardial infarction. Chief Complaint "I was admitted because of flashbacks". 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 food saved, packaged, and placed in pt fridge at this time. Subjective Subjective Patient was seen & assessed and interval progress reviewed with nursing and social work. She was admitted due to intrusive (sexual, harm/injury to her dog) thoughts which began 6 days ago. She has a background of self injury by cutting at age 12, several ER visits for panic attacks at about age 12. She was diagnosed with MDD at 12, MARCELO, ADHD at age 20, while in college, and complicated grief (witnessed her mother 4 years ago). In the past, has been treated with Wellbutrin, Lexapro, Zoloft, Prozac, Naltrexone, Lorazepam, Adderall. Last took Adderall a month ago. She endorses a history of heavy drinking from ages 20 to her early 30s. Last drink was 2 months ago. She denied recent heavy drinking. At this time, she endorses thoughts of guilt, nightmares and flashbacks about mom's . Intrusive thoughts are less intense. She denied suicidal ideation or psychosis at this time. She described her tics as voluntary physical gestures (shaking her head) to interrupt her intrusive thoughts. She denied a prior history of motor and vocal tics, including while taking Adderall. No medication side effects. Physical Exam Mental Examination Appearance: Well Groomed Eye Contact: Maintains Eye Contact Motor Behavior: Unremarkable Speech: Soft Mood: Euthymic and Calm Affect: Congruent and Constricted Thought Process: Intact and Linear Thought Content: Intact and Racing Hallucinations: None Insight: Fair Judgement: Fair Vital Signs (Past 24 Hours) Last Vital Signs Temp 36.4 C L 09/13/24 06:33 Pulse 78 09/13/24 06:33 Resp 16 09/13/24 06:33 BP 89/57 L 09/13/24 06:33 Pulse Ox 98 09/12/24 06:00 O2 Del Method Room Air 09/12/24 06:00 Results & Data ([facility]) Current Inpatient Medications Current Inpatient Medications: Current Inpatient Medications Acetaminophen (Acetaminophen 325 Mg Tab) 650 mg PO Q4H PRN PRN Reason: Headache or Minor Fever Stop: 10/10/24 01:36 Al Hydrox/Mg Hydrox/Simethicone (Aluminum/Magnesium Susp 30 Ml Udc) 30 ml PO Q4H PRN PRN Reason: GI Upset Stop: 10/10/24 01:36 Bismuth Subsalicylate (Bismuth Subsalicylate 262 Mg Chew) 2 tab PO Q30M PRN PRN Reason: Loose Stool/Diarrhea Stop: 10/10/24 01:36 Calcium Carbonate (Calcium Carbonate 500 Mg Chewable Tab) 1,000 mg PO TID PRN PRN Reason: Indigestion Stop: 10/10/24 16:19 Hydroxyzine HCl (Hydroxyzine Hcl 25 Mg Tab) 50 mg PO Q6H PRN PRN Reason: anxiety, insomnia Stop: 10/10/24 13:30 Lorazepam (Lorazepam 0.5 Mg Tab) 0.5 mg PO PM ANA LILIA Stop: 10/11/24 20:59 Last Admin: 09/12/24 20:33 Dose: 0.5 mg Lorazepam (Lorazepam 0.5 Mg Tab) 0.5 mg PO Q6 PRN PRN Reason: Anxiety Stop: 10/10/24 01:43 Magnesium Hydroxide (Magnesium Hydroxide Susp 30 Ml Udc) 30 ml PO DAILY PRN PRN Reason: Constipation Stop: 10/10/24 01:36 Sodium Chloride (Sodium Chloride 0.65% Na Soln 45 Ml ([place])) 1 - 2 sprays NA PRN PRN PRN Reason: Nasal Dryness/Congestion Stop: 10/10/24 01:36 Trazodone HCl (Trazodone Hcl 50 Mg Tab) 50 mg PO PM ANA LILIA Stop: 10/11/24 20:59 Last Admin: 09/12/24 20:33 Dose: 50 mg Venlafaxine HCl (Venlafaxine Hcl Xr 75 Mg Capxr) 75 mg PO QAM ANA LILIA Stop: 10/12/24 08:59 Last Admin: 09/13/24 08:59 Dose: 75 mg Mental Health & Subst Abuse Tx Psychiatrist Name of Psychiatrist: Eleanor Psychiatrist's Therapist Name of Therapist: N/A Talent Agent Name of Talent Agent: N/A Post Discharge Appointments Primary Care Physician Name Of Family Doctor/PCP: [facility] - Dr. Washburn Primary Care Date of Future Appointment with PCP: 2025 Provider Appointment Comment: Follow up as needed Contact Information Discharge Discharge Address: [address] [place] [address] (5) MDD (major depressive disorder), recurrent episode, severe Psychotic features: with psychotic features Qualified Code(s): F33.3 - Major depressive disorder, recurrent, severe with psychotic symptoms (6) ADHD Attention deficit-hyperactivity disorder type: unspecified Qualified Code(s): F90.9 - Attention-deficit hyperactivity disorder, unspecified type
[2024-09-13 17:46] LABS: MDA negative; MDEA negative; MDMA (Ecstasy) Urine, Confirm negative
[2024-09-13] MEDS: PRAZOSIN HCL 1 MG CAP PO SCH (20:38)
[2024-09-13] MEDS: SODIUM CHLORIDE 0.65% NA SOLN 45 ML (OCEAN) PRN (21:54)
[2024-09-13] MEDS: hydrOXYzine HCl 25 MG TAB PO PRN (21:54)
[2024-09-14] MEDS: VENLAFAXINE HCL XR 37.5 MG CAPXR PO SCH (08:47)
--- NOTE | 2024-09-14 11:21 | Psychiatric Progress Note ---
Date of Service September 14, 2024 Impression / Recommendations Impression 34-year-old F who currently lives in with boyfriend, admitted on 09/10/24 on a 201 voluntary commitment for worsening anxiety, dissociative symptoms, auditory hallucinations, motor tics, sleep dysfunction in the context of flashbacks of her mother who unexpectedly in her arms in 2021 from a myocardial infarction. Episode was triggered by organizing her mom's belongings. She has a history of MARCELO, MDD, ADHD. It is notable that her psychotic and trauma symptoms have resolved rather quickly without the use of antipsychotic agents. History of self injury and stress-induced psychosis suggests a differential of Cluster B personality traits. Other differentials include Bipolar mixed episode vs MDD severe epi w/ psychosis. Overall, I spent a total of 35 minutes with this case including review of chart records, nursing report, review of lab work, direct evaluation of the patient at bedside, counseling the patient, multidisciplinary team meeting, orders, and documentation in the electronic health record. (1) Facial tic: Not evident today. Will continue to monitor. (2) Auditory hallucinations: Will continue to closely monitor. (3) Insomnia: Initial insomnia. Will monitor sleep and adjust medication as needed. (4) Dissociation: Not reported today (5) Post traumatic stress disorder (PTSD): Endorses flashbacks. (6) MDD (major depressive disorder), recurrent episode, severe: Mood remains depressed. (7) ADHD: Plan 09/14/24: Continue current medication: Efexor 112.5mg daily, Prazosin 1mg qhs, Lorazepam Prn. 09/12/24: Continue current medication and current level of observation. 09/11/2024: Decrease lorazepam to 0.5 mg at bedtime and 0.5 mg as needed. Increase venlafaxine ER to 75 mg daily. Continue trazodone. 09/10/24:The patient was admitted to the [facility]) on q15 min checks (behavioral with suicide precautions) for safety. The patient will participate in group, recreational, and milieu therapies and will be offered additional individual and family sessions as clinically appropriate. -Hold home Bupropion, Amphetamines -Start Venlfaxine ER 37.5mg QD -Start Lorazepam 1mg HS -Start Trazodone 50mg HS -Lorazepam 1mg Q6H PRN for anxiety -Labs: HgbA1C, fasting lipids, Vit D -Questionnaires: Gray borderline personality screener, MARCELO-7, international trauma questionnaire, BALA questionnaire Inventory Assets Strengths: fair insight, intelligent Needs: outpatient connection, trauma counseling Suicide Risk Level Suicide Risk Level: Low (q15 min observation checks) Risk Factors Assessment Male: No : Yes Do You Have Access To A Gun?: Yes Health Problems: No Mental Health Diagnoses: Yes Substance Use Disorders: No Previous Attempt: No Family History of Suicide: No Previous Psychiatric Hospitalization: No Hopelessness: Yes Protective Factors Assessment Yazidism Beliefs: No : No Responsible for Young Children: No Employed: No Stable Relationships: Yes Supportive Family: Yes Good Rapport with Provider: Yes Absence of Any Risk Factors Above: No Interval History Identifying Information 34-year-old F with a lengthy psychiatric history, and diagnoses of PTSD, MARCELO, MDD, ADHD. She was admitted on 09/10/24 01:16 on a 201 voluntary commitment for worsening anxiety, dissociative symptoms, auditory hallucinations, motor tics, sleep dysfunction in the context of flashbacks of her mother who unexpectedly in her arms in 2021 from a myocardial infarction. Chief Complaint "I am feeling better". Review of Systems Sleep Information Total Hours of Sleep: 8.75 Sleep Comments: 6.5 Meal Information Percent Meal Consumed - Breakfast: 100 Percent Meal Consumed - Lunch: 100 Percent Meal Consumed - Dinner: 75 Subjective Subjective Patient was seen & assessed and interval progress reviewed with treatment team. At this time, she reports improved mood and sleep, but feels fatigued. She last experienced auditory hallucinations yesterday. These typically are triggered by periods of stress, are of multiple voices which make derogatory statements such as "no one loves you". AH usually resolve within a week, usually upon resolution of stress and have never been command. She denied flashbacks, dissociative episodes or nightmares, denied suicidal ideation. No medication side effects at this time. She reports her BP always runs low and denied any current orthostatic symptoms. "Tics" are voluntary movements of her head intended to assist in dismissing unpleasant thoughts. Physical Exam Mental Examination Appearance: Well Groomed Eye Contact: Maintains Eye Contact Motor Behavior: Unremarkable and Tics Speech: Soft Mood: Euthymic and Calm Affect: Calm, Congruent and Constricted Thought Process: Intact and Linear Thought Content: Intact and Racing Hallucinations: None Insight: Fair Judgement: Fair Vital Signs (Past 24 Hours) Last Vital Signs Temp 36.7 C 09/14/24 06:29 Pulse 86 09/14/24 06:29 Resp 16 09/14/24 06:29 BP 81/46 L 09/14/24 06:29 Pulse Ox 98 09/12/24 06:00 O2 Del Method Room Air 09/12/24 06:00 Results & Data ([facility]) Laboratory Results Laboratory Results - last 24 hr 09/09/24 21:07 Urine MDEA negative MDMA negative Urine MDMA negative Current Inpatient Medications Current Inpatient Medications: Current Inpatient Medications Acetaminophen (Acetaminophen 325 Mg Tab) 650 mg PO Q4H PRN PRN Reason: Headache or Minor Fever Stop: 10/10/24 01:36 Al Hydrox/Mg Hydrox/Simethicone (Aluminum/Magnesium Susp 30 Ml Udc) 30 ml PO Q4H PRN PRN Reason: GI Upset Stop: 10/10/24 01:36 Bismuth Subsalicylate (Bismuth Subsalicylate 262 Mg Chew) 2 tab PO Q30M PRN PRN Reason: Loose Stool/Diarrhea Stop: 10/10/24 01:36 Calcium Carbonate (Calcium Carbonate 500 Mg Chewable Tab) 1,000 mg PO TID PRN PRN Reason: Indigestion Stop: 10/10/24 16:19 Hydroxyzine HCl (Hydroxyzine Hcl 25 Mg Tab) 50 mg PO Q6H PRN PRN Reason: anxiety, insomnia Stop: 10/10/24 13:30 Last Admin: 09/13/24 21:54 Dose: 50 mg Lorazepam (Lorazepam 0.5 Mg Tab) 0.5 mg PO PM ANA LILIA Stop: 10/11/24 20:59 Last Admin: 09/13/24 20:38 Dose: 0.5 mg Lorazepam (Lorazepam 0.5 Mg Tab) 0.5 mg PO Q6 PRN PRN Reason: Anxiety Stop: 10/10/24 01:43 Magnesium Hydroxide (Magnesium Hydroxide Susp 30 Ml Udc) 30 ml PO DAILY PRN PRN Reason: Constipation Stop: 10/10/24 01:36 Prazosin HCl (Prazosin Hcl 1 Mg Cap) 1 mg PO HS ANA LILIA Stop: 10/13/24 21:59 Last Admin: 09/13/24 20:38 Dose: 1 mg Sodium Chloride (Sodium Chloride 0.65% Na Soln 45 Ml ([place])) 1 - 2 sprays NA PRN PRN PRN Reason: Nasal Dryness/Congestion Stop: 10/10/24 01:36 Last Admin: 09/13/24 21:54 Dose: 2 sprays Trazodone HCl (Trazodone Hcl 50 Mg Tab) 50 mg PO PM ANA LILIA Stop: 10/11/24 20:59 Last Admin: 09/13/24 20:38 Dose: 50 mg Venlafaxine HCl (Venlafaxine Hcl Xr 37.5 Mg Capxr) 112.5 mg PO QAM ANA LILIA Stop: 10/14/24 08:59 Last Admin: 09/14/24 08:47 Dose: 112.5 mg Mental Health & Subst Abuse Tx Psychiatrist Name of Psychiatrist: Eleanor Psychiatrist's Therapist Name of Therapist: N/A Construction Equipment Operator Name of Construction Equipment Operator: N/A Post Discharge Appointments Primary Care Physician Name Of Family Doctor/PCP: [facility] - Dr. Washburn Primary Care Date of Future Appointment with PCP: 2025 Provider Appointment Comment: Follow up as needed Contact Information Discharge Discharge Address: [address] [place] [address] (3) Insomnia Insomnia type: unspecified Qualified Code(s): G47.00 - Insomnia, unspecified (6) MDD (major depressive disorder), recurrent episode, severe Psychotic features: with psychotic features Qualified Code(s): F33.3 - Major depressive disorder, recurrent, severe with psychotic symptoms (7) ADHD Attention deficit-hyperactivity disorder type: unspecified Qualified Code(s): F90.9 - Attention-deficit hyperactivity disorder, unspecified type
--- NOTE | 2024-09-15 11:36 | Psychiatric Progress Note ---
Date of Service September 15, 2024 Impression / Recommendations Impression 34-year-old F who currently lives in with boyfriend, admitted on 09/10/24 on a 201 voluntary commitment for worsening anxiety, dissociative symptoms, auditory hallucinations, motor tics, sleep dysfunction in the context of flashbacks of her mother who unexpectedly in her arms in 2021 from a myocardial infarction. Episode was triggered by organizing her mom's belongings. She has a history of MARCELO, MDD, ADHD. It is notable that her psychotic and trauma symptoms have resolved rather quickly without the use of antipsychotic agents. History of self injury and stress-induced psychosis suggests a differential of Cluster B personality traits. Other differentials include Bipolar mixed episode vs MDD severe epi w/ psychosis. Overall, I spent a total of 30 minutes with this case including review of chart records, nursing report, direct evaluation of the patient at bedside, counseling the patient, multidisciplinary team meeting, orders, and documentation in the electronic health record. (1) Facial tic: (2) Auditory hallucinations: (3) Insomnia: (4) Dissociation: (5) Post traumatic stress disorder (PTSD): (6) MDD (major depressive disorder), recurrent episode, severe: Mood remains depressed. (7) ADHD: Plan 09/15/24: Continue Effexor at current dose. Have discussed plan to increase to 150mg daily. Continue Prazosin 1 mg qhs, Lorazepam and Trazodone at current doses. ELOS 3 days. 09/14/24: Continue medication at current doses. 09/13/24: Increase Effexor to 112.5mg daily. Add Prazosin 1 mg qhs for nightmares. Discussed risks, benefits and side effects, including hypotension. 09/12/24: Continue current medication and current level of observation. 09/11/2024: Decrease lorazepam to 0.5 mg at bedtime and 0.5 mg as needed. Increase venlafaxine ER to 75 mg daily. Continue trazodone. 09/10/24:The patient was admitted to the [facility] ([facility]) on q15 min checks (behavioral with suicide precautions) for safety. The patient will participate in group, recreational, and milieu therapies and will be offered additional individual and family sessions as clinically appropriate. -Hold home Bupropion, Amphetamines -Start Venlfaxine ER 37.5mg QD -Start Lorazepam 1mg HS -Start Trazodone 50mg HS -Lorazepam 1mg Q6H PRN for anxiety -Labs: HgbA1C, fasting lipids, Vit D -Questionnaires: Gray borderline personality screener, MARCELO-7, international trauma questionnaire, BALA questionnaire Inventory Assets Strengths: fair insight, intelligent Needs: outpatient connection, trauma counseling Suicide Risk Level Suicide Risk Level: Low (q15 min observation checks) Risk Factors Assessment Male: No : Yes Do You Have Access To A Gun?: Yes Health Problems: No Mental Health Diagnoses: Yes Substance Use Disorders: No Previous Attempt: No Family History of Suicide: No Previous Psychiatric Hospitalization: No Hopelessness: Yes Protective Factors Assessment Caodaism Beliefs: No : No Responsible for Young Children: No Employed: No Stable Relationships: Yes Supportive Family: Yes Good Rapport with Provider: Yes Absence of Any Risk Factors Above: No Interval History Identifying Information 34-year-old F with a lengthy psychiatric history, and diagnoses of PTSD, MARCELO, MDD, ADHD. She was admitted on 09/10/24 01:16 on a 201 voluntary commitment for worsening anxiety, dissociative symptoms, auditory hallucinations, motor tics, sleep dysfunction in the context of flashbacks of her mother who unexpectedly in her arms in 2021 from a myocardial infarction. Chief Complaint "I slept better". Review of Systems Sleep Information Total Hours of Sleep: 6.75 Sleep Comments: 6.5 Meal Information Percent Meal Consumed - Breakfast: 80 Percent Meal Consumed - Lunch: 90 Percent Meal Consumed - Dinner: 95 Subjective Subjective Patient was seen & assessed and interval progress reviewed with nursing. She is still having difficulty sleeping but denied mood symptoms, dissociative episodes, side effects, anxiety, flashbacks or nightmares. Denied auditory hallucinations or other psychotic symptoms. BP noted to be low: 77/57 today. She endorses fatigue but no orthostatic symptoms Denied other side effects. She denied having prior episodes of remington or hypomania. No family history of bipolar disorder. Her father is a combat who may have PTSD. She had been prescribed Abilify in the past and had a headache on it. Denied trials of other antipsychotics. Physical Exam Mental Examination Appearance: Well Groomed Eye Contact: Maintains Eye Contact Motor Behavior: Unremarkable Speech: Soft Mood: Euthymic and Calm Affect: Calm, Congruent and Constricted Thought Process: Intact and Linear Thought Content: Intact and Racing Hallucinations: None Insight: Fair Judgement: Fair Vital Signs (Past 24 Hours) Last Vital Signs Temp 36.5 C 09/15/24 06:14 Pulse 88 09/15/24 06:15 Resp 16 09/15/24 06:14 BP 77/57 L 09/15/24 06:15 Pulse Ox 98 09/12/24 06:00 O2 Del Method Room Air 09/12/24 06:00 Results & Data ([facility]) Current Inpatient Medications Current Inpatient Medications: Current Inpatient Medications Acetaminophen (Acetaminophen 325 Mg Tab) 650 mg PO Q4H PRN PRN Reason: Headache or Minor Fever Stop: 10/10/24 01:36 Al Hydrox/Mg Hydrox/Simethicone (Aluminum/Magnesium Susp 30 Ml Udc) 30 ml PO Q4H PRN PRN Reason: GI Upset Stop: 10/10/24 01:36 Bismuth Subsalicylate (Bismuth Subsalicylate 262 Mg Chew) 2 tab PO Q30M PRN PRN Reason: Loose Stool/Diarrhea Stop: 10/10/24 01:36 Calcium Carbonate (Calcium Carbonate 500 Mg Chewable Tab) 1,000 mg PO TID PRN PRN Reason: Indigestion Stop: 10/10/24 16:19 Hydroxyzine HCl (Hydroxyzine Hcl 25 Mg Tab) 50 mg PO Q6H PRN PRN Reason: anxiety, insomnia Stop: 10/10/24 13:30 Last Admin: 09/14/24 22:46 Dose: 50 mg Lorazepam (Lorazepam 0.5 Mg Tab) 0.5 mg PO PM ANA LILIA Stop: 10/11/24 20:59 Last Admin: 09/14/24 20:40 Dose: 0.5 mg Lorazepam (Lorazepam 0.5 Mg Tab) 0.5 mg PO Q6 PRN PRN Reason: Anxiety Stop: 10/10/24 01:43 Magnesium Hydroxide (Magnesium Hydroxide Susp 30 Ml Udc) 30 ml PO DAILY PRN PRN Reason: Constipation Stop: 10/10/24 01:36 Prazosin HCl (Prazosin Hcl 1 Mg Cap) 1 mg PO HS ANA LILIA Stop: 10/13/24 21:59 Last Admin: 09/14/24 20:40 Dose: 1 mg Sodium Chloride (Sodium Chloride 0.65% Na Soln 45 Ml ([place])) 1 - 2 sprays NA PRN PRN PRN Reason: Nasal Dryness/Congestion Stop: 10/10/24 01:36 Last Admin: 09/13/24 21:54 Dose: 2 sprays Trazodone HCl (Trazodone Hcl 50 Mg Tab) 50 mg PO PM ANA LILIA Stop: 10/11/24 20:59 Last Admin: 09/14/24 20:40 Dose: 50 mg Venlafaxine HCl (Venlafaxine Hcl Xr 37.5 Mg Capxr) 112.5 mg PO QAM ANA LILIA Stop: 10/14/24 08:59 Last Admin: 09/15/24 08:56 Dose: 112.5 mg Mental Health & Subst Abuse Tx Psychiatrist Name of Psychiatrist: Eleanor Psychiatrist's Therapist Name of Therapist: N/A Hr Coordinator Name of Hr Coordinator: N/A Post Discharge Appointments Primary Care Physician Name Of Family Doctor/PCP: [facility] - Dr. Washburn Primary Care Date of Future Appointment with PCP: 2025 Provider Appointment Comment: Follow up as needed Contact Information Discharge Discharge Address: [address] [place] [address] (3) Insomnia Insomnia type: unspecified Qualified Code(s): G47.00 - Insomnia, unspecified (6) MDD (major depressive disorder), recurrent episode, severe Psychotic features: with psychotic features Qualified Code(s): F33.3 - Major depressive disorder, recurrent, severe with psychotic symptoms (7) ADHD Attention deficit-hyperactivity disorder type: unspecified Qualified Code(s): F90.9 - Attention-deficit hyperactivity disorder, unspecified type
[2024-09-16] MEDS: VENLAFAXINE HCL XR 150 MG CAPXR PO SCH (09:06)
--- NOTE | 2024-09-16 13:08 | Psychiatric Progress Note ---
Date of Service September 16, 2024 Impression / Recommendations Impression 34-year-old F who currently lives in with boyfriend, admitted on 09/10/24 on a 201 voluntary commitment for worsening anxiety, dissociative symptoms, auditory hallucinations, motor tics, sleep dysfunction in the context of flashbacks of her mother who unexpectedly in her arms in 2021 from a myocardial infarction. Episode was triggered by organizing her mom's belongings. She has a history of MARCELO, MDD, ADHD. Psychotic and trauma symptoms are resolved. History of self injury and stress- induced psychosis suggests a differential of Cluster B personality traits. Overall, I spent a total of 30 minutes with this case including review of chart records, nursing report, direct evaluation of the patient at bedside, counseling the patient, multidisciplinary team meeting, orders, and documentation in the electronic health record. (1) Facial tic: Not evident today. Will continue to monitor. (2) Auditory hallucinations: Will continue to closely monitor. (3) Insomnia: Initial insomnia. Will monitor sleep and adjust medication as needed. (4) Dissociation: Not reported today (5) Post traumatic stress disorder (PTSD): Endorses flashbacks. (6) MDD (major depressive disorder), recurrent episode, severe: Mood remains depressed. (7) ADHD: Plan 09/16/24: Increase Effexor XR to 150mg daily. Continue other meds at current doses. 09/15/24: Continue Effexor at current dose. Have discussed plan to increase to 150mg daily. Continue Prazosin 1 mg qhs, Lorazepam and Trazodone at current doses. ELOS 3 days. 09/14/24: Continue medication at current doses. 09/13/24: Increase Effexor to 112.5mg daily. Add Prazosin 1 mg qhs for nightmares. Discussed risks, benefits and side effects, including hypotension. 09/12/24: Continue current medication and current level of observation. 09/11/2024: Decrease lorazepam to 0.5 mg at bedtime and 0.5 mg as needed. Increase venlafaxine ER to 75 mg daily. Continue trazodone. 09/10/24:The patient was admitted to the [facility] ([facility] mental [facility] unit) on q15 min checks (behavioral with suicide precautions) for safety. The patient will participate in group, recreational, and milieu therapies and will be offered additional individual and family sessions as clinically appropriate. -Hold home Bupropion, Amphetamines -Start Venlfaxine ER 37.5mg QD -Start Lorazepam 1mg HS -Start Trazodone 50mg HS -Lorazepam 1mg Q6H PRN for anxiety -Labs: HgbA1C, fasting lipids, Vit D -Questionnaires: Isaac borderline personality screener, MARCELO-7, international trauma questionnaire, BALA questionnaire Inventory Assets Strengths: fair insight, intelligent Needs: outpatient connection, trauma counseling Suicide Risk Level Suicide Risk Level: Low (q15 min observation checks) Risk Factors Assessment Male: No : Yes Do You Have Access To A Gun?: Yes Health Problems: No Mental Health Diagnoses: Yes Substance Use Disorders: No Previous Attempt: No Family History of Suicide: No Previous Psychiatric Hospitalization: No Hopelessness: Yes Protective Factors Assessment Sikh Beliefs: No : No Responsible for Young Children: No Employed: No Stable Relationships: Yes Supportive Family: Yes Good Rapport with Provider: Yes Absence of Any Risk Factors Above: No Interval History Identifying Information 34-year-old F with a lengthy psychiatric history, and diagnoses of PTSD, MARCELO, MDD, ADHD. She was admitted on 09/10/24 01:16 on a 201 voluntary commitment for worsening anxiety, dissociative symptoms, auditory hallucinations, motor tics, sleep dysfunction in the context of flashbacks of her mother who unexpectedly in her arms in 2021 from a myocardial infarction. Chief Complaint "I'm still a little tired". Review of Systems Sleep Information Total Hours of Sleep: 6.5 Sleep Comments: 6.5 Meal Information Percent Meal Consumed - Breakfast: 90 Percent Meal Consumed - Lunch: 80 Percent Meal Consumed - Dinner: 100 Subjective Subjective Patient was seen & assessed and interval progress reviewed with nursing. She reports mood is much improved and denied any psychotic symptoms. She reports fatigue which she attributes to not taking Adderall, which she had taken since age 22. Also endorses lightheadedness but denied other orthostatic symptoms. BP 81/56 today. She denied auditory or visual hallucinations, paranoia. No tic-like movements noted during interview or reported by staff. She is engaged and interactive, participating in groups. No further flashbacks or nightmares. Physical Exam Mental Examination Appearance: Well Groomed Eye Contact: Maintains Eye Contact Motor Behavior: Unremarkable Speech: Soft Mood: Euthymic and Calm Affect: Calm, Congruent and Constricted Thought Process: Intact and Linear Thought Content: Intact and Racing Hallucinations: None Insight: Fair Judgement: Fair Vital Signs (Past 24 Hours) Last Vital Signs Temp 36.5 C 09/16/24 06:16 Pulse 81 09/16/24 06:17 Resp 16 09/16/24 06:16 BP 81/56 L 09/16/24 06:17 Pulse Ox 98 09/12/24 06:00 O2 Del Method Room Air 09/12/24 06:00 Results & Data ([facility]) Current Inpatient Medications Current Inpatient Medications: Current Inpatient Medications Acetaminophen (Acetaminophen 325 Mg Tab) 650 mg PO Q4H PRN PRN Reason: Headache or Minor Fever Stop: 10/10/24 01:36 Al Hydrox/Mg Hydrox/Simethicone (Aluminum/Magnesium Susp 30 Ml Udc) 30 ml PO Q4H PRN PRN Reason: GI Upset Stop: 10/10/24 01:36 Bismuth Subsalicylate (Bismuth Subsalicylate 262 Mg Chew) 2 tab PO Q30M PRN PRN Reason: Loose Stool/Diarrhea Stop: 10/10/24 01:36 Calcium Carbonate (Calcium Carbonate 500 Mg Chewable Tab) 1,000 mg PO TID PRN PRN Reason: Indigestion Stop: 10/10/24 16:19 Hydroxyzine HCl (Hydroxyzine Hcl 25 Mg Tab) 50 mg PO Q6H PRN PRN Reason: anxiety, insomnia Stop: 10/10/24 13:30 Last Admin: 09/15/24 21:34 Dose: 50 mg Lorazepam (Lorazepam 0.5 Mg Tab) 0.5 mg PO PM ANA LILIA Stop: 10/11/24 20:59 Last Admin: 09/15/24 20:53 Dose: 0.5 mg Lorazepam (Lorazepam 0.5 Mg Tab) 0.5 mg PO Q6 PRN PRN Reason: Anxiety Stop: 10/10/24 01:43 Magnesium Hydroxide (Magnesium Hydroxide Susp 30 Ml Udc) 30 ml PO DAILY PRN PRN Reason: Constipation Stop: 10/10/24 01:36 Prazosin HCl (Prazosin Hcl 1 Mg Cap) 1 mg PO HS ANA LILIA Stop: 10/13/24 21:59 Last Admin: 09/15/24 20:52 Dose: 1 mg Sodium Chloride (Sodium Chloride 0.65% Na Soln 45 Ml ([place])) 1 - 2 sprays NA PRN PRN PRN Reason: Nasal Dryness/Congestion Stop: 10/10/24 01:36 Last Admin: 09/13/24 21:54 Dose: 2 sprays Trazodone HCl (Trazodone Hcl 50 Mg Tab) 50 mg PO PM ANA LILIA Stop: 10/11/24 20:59 Last Admin: 09/15/24 20:53 Dose: 50 mg Venlafaxine HCl (Venlafaxine Hcl Xr 150 Mg Capxr) 150 mg PO QAM ANA LILIA Stop: 10/16/24 08:59 Last Admin: 09/16/24 09:06 Dose: 150 mg Mental Health & Subst Abuse Tx Psychiatrist Name of Psychiatrist: Eleanor Psychiatrist's Therapist Name of Therapist: N/A Bricklayer Sewer Name of Bricklayer Sewer: N/A Post Discharge Appointments Primary Care Physician Name Of Family Doctor/PCP: [facility] - Dr. Washburn Primary Care Date of Future Appointment with PCP: 2025 Provider Appointment Comment: Follow up as needed Contact Information Discharge Discharge Address: [address] [place] [address] (3) Insomnia Insomnia type: unspecified Qualified Code(s): G47.00 - Insomnia, unspecified (6) MDD (major depressive disorder), recurrent episode, severe Psychotic features: with psychotic features Qualified Code(s): F33.3 - Major depressive disorder, recurrent, severe with psychotic symptoms (7) ADHD Attention deficit-hyperactivity disorder type: unspecified Qualified Code(s): F90.9 - Attention-deficit hyperactivity disorder, unspecified type
[2024-09-17 06:16] VITALS: TEMP 97.9
--- NOTE | 2024-09-17 10:46 | Psychiatric Progress Note ---
Date of Service September 17, 2024 Impression / Recommendations Impression 34-year-old F who currently lives in with boyfriend, admitted on 09/10/24 on a 201 voluntary commitment for worsening anxiety, dissociative symptoms, auditory hallucinations, motor tics, sleep dysfunction in the context of flashbacks of her mother who unexpectedly in her arms in 2021 from a myocardial infarction. Episode was triggered by organizing her mom's belongings. Discharge diagnoses: By history Generalized Anxiety Disorder, Major Depressive Disorder, ADHD. Post Traumatic Stress Disorder Unspecified Psychosis r/o Bipolar Disorder Type II vs MDD recurrent with Psychosis. r/o Cluster B personality traits. Remote history of alcohol and drug use, in full sustained remission. Overall, I spent a total of 40 minutes with this case including review of chart records, nursing report, direct evaluation of the patient at bedside, counseling the patient, multidisciplinary team meeting, orders, and documentation in the electronic health record. (1) Auditory hallucinations: Will continue to closely monitor. (2) Insomnia: (3) Post traumatic stress disorder (PTSD): Endorses flashbacks. (4) MDD (major depressive disorder), recurrent episode, severe: (5) ADHD: Plan 09/17/24: Discharge today on current medication. 09/16/24: Continue current medication. 09/15/24: Continue current medication (Effexor 150mg daily, Prazosin 1 mg qhs). Discharge planning. 09/14/24: Continue medication at current doses. 09/13/24: Increase Effexor to 112.5mg daily. Add Prazosin 1 mg qhs for nightmares. Discussed risks, benefits and side effects, including hypotension. 09/12/24: Continue current medication and current level of observation. 09/11/2024: Decrease lorazepam to 0.5 mg at bedtime and 0.5 mg as needed. Increase venlafaxine ER to 75 mg daily. Continue trazodone. 09/10/24:The patient was admitted to the [facility] ([facility] unit) on q15 min checks (behavioral with suicide precautions) for safety. The patient will participate in group, recreational, and milieu therapies and will be offered additional individual and family sessions as clinically appropriate. -Hold home Bupropion, Amphetamines -Start Venlfaxine ER 37.5mg QD -Start Lorazepam 1mg HS -Start Trazodone 50mg HS -Lorazepam 1mg Q6H PRN for anxiety -Labs: HgbA1C, fasting lipids, Vit D -Questionnaires: Gray borderline personality screener, MARCELO-7, international trauma questionnaire, BALA questionnaire Inventory Assets Strengths: fair insight, intelligent Needs: outpatient connection, trauma counseling Suicide Risk Level Suicide Risk Level: Low (q15 min observation checks) Risk Factors Assessment Male: No : Yes Do You Have Access To A Gun?: Yes Health Problems: No Mental Health Diagnoses: Yes Substance Use Disorders: No Previous Attempt: No Family History of Suicide: No Previous Psychiatric Hospitalization: No Hopelessness: Yes Protective Factors Assessment Anabaptist Beliefs: No : No Responsible for Young Children: No Employed: No Stable Relationships: Yes Supportive Family: Yes Good Rapport with Provider: Yes Absence of Any Risk Factors Above: No Interval History Identifying Information 34-year-old F with a lengthy psychiatric history, and diagnoses of PTSD, MARCELO, MDD, ADHD. She was admitted on 09/10/24 01:16 on a 201 voluntary commitment for worsening anxiety, dissociative symptoms, auditory hallucinations, motor tics, sleep dy sfunction in the context of flashbacks of her mother who unexpectedly in her arms in 2021 from a myocardial infarction. Chief Complaint "[]". Review of Systems Sleep Information Total Hours of Sleep: 7.5 Sleep Comments: 6.5 Meal Information Percent Meal Consumed - Breakfast: 100 Percent Meal Consumed - Lunch: 80 Percent Meal Consumed - Dinner: 100 Subjective Subjective Patient was seen & assessed and interval progress reviewed with the treatment team. She is attending groups, interactive with staff and peers, reports her mood is 8/10, slept over 7 hours last night. No evidence of psychosis noted over the weekend. She denied medication side effects. No suicidal or homicidal ideation. No tics or other abnormal body movements noted. Pending a social meeting with her boyfriend today. Physical Exam Mental Examination Appearance: Well Groomed (No abnormal behavior.) Eye Contact: Maintains Eye Contact Motor Behavior: Unremarkable ( No psychomotor agitation or retardation. ) Speech: Normal Mood: Euthymic and Calm Affect: Calm and Congruent Thought Process: Intact and Linear Thought Content: Intact, Goal Oriented and Logical Hallucinations: None Insight: Fair Judgement: Fair Vital Signs (Past 24 Hours) Last Vital Signs Temp 36.6 C 09/17/24 06:14 Pulse 81 09/17/24 06:15 Resp 16 09/17/24 06:14 BP 78/54 L 09/17/24 06:15 Pulse Ox 98 09/12/24 06:00 O2 Del Method Room Air 09/12/24 06:00 Results & Data ([facility]) Current Inpatient Medications Current Inpatient Medications: Current Inpatient Medications Acetaminophen (Acetaminophen 325 Mg Tab) 650 mg PO Q4H PRN PRN Reason: Headache or Minor Fever Stop: 10/10/24 01:36 Al Hydrox/Mg Hydrox/Simethicone (Aluminum/Magnesium Susp 30 Ml Udc) 30 ml PO Q4H PRN PRN Reason: GI Upset Stop: 10/10/24 01:36 Bismuth Subsalicylate (Bismuth Subsalicylate 262 Mg Chew) 2 tab PO Q30M PRN PRN Reason: Loose Stool/Diarrhea Stop: 10/10/24 01:36 Calcium Carbonate (Calcium Carbonate 500 Mg Chewable Tab) 1,000 mg PO TID PRN PRN Reason: Indigestion Stop: 10/10/24 16:19 Hydroxyzine HCl (Hydroxyzine Hcl 25 Mg Tab) 50 mg PO Q6H PRN PRN Reason: anxiety, insomnia Stop: 10/10/24 13:30 Last Admin: 09/16/24 21:03 Dose: 50 mg Lorazepam (Lorazepam 0.5 Mg Tab) 0.5 mg PO PM ANA LILIA Stop: 10/11/24 20:59 Last Admin: 09/16/24 21:02 Dose: 0.5 mg Lorazepam (Lorazepam 0.5 Mg Tab) 0.5 mg PO Q6 PRN PRN Reason: Anxiety Stop: 10/10/24 01:43 Magnesium Hydroxide (Magnesium Hydroxide Susp 30 Ml Udc) 30 ml PO DAILY PRN PRN Reason: Constipation Stop: 10/10/24 01:36 Prazosin HCl (Prazosin Hcl 1 Mg Cap) 1 mg PO HS ANA LILIA Stop: 10/13/24 21:59 Last Admin: 09/16/24 21:04 Dose: 1 mg Sodium Chloride (Sodium Chloride 0.65% Na Soln 45 Ml ([place])) 1 - 2 sprays NA PRN PRN PRN Reason: Nasal Dryness/Congestion Stop: 10/10/24 01:36 Last Admin: 09/13/24 21:54 Dose: 2 sprays Trazodone HCl (Trazodone Hcl 50 Mg Tab) 50 mg PO PM ANA LILIA Stop: 10/11/24 20:59 Last Admin: 09/16/24 21:03 Dose: 50 mg Venlafaxine HCl (Venlafaxine Hcl Xr 150 Mg Capxr) 150 mg PO QAM ANA LILIA Stop: 10/16/24 08:59 Last Admin: 09/17/24 08:38 Dose: 150 mg Mental Health & Subst Abuse Tx Psychiatrist Name of Psychiatrist: Eleanor Psychiatrist's Therapist Name of Therapist: N/A Roustabout Pusher Name of Roustabout Pusher: N/A Post Discharge Appointments Primary Care Physician Name Of Family Doctor/PCP: [facility] - Dr. Washburn Primary Care Date of Future Appointment with PCP: 2025 Provider Appointment Comment: Follow up as needed Contact Information Discharge Discharge Address: [address] [place] [address] (2) Insomnia Insomnia type: unspecified Qualified Code(s): G47.00 - Insomnia, unspecified (4) MDD (major depressive disorder), recurrent episode, severe Psychotic features: with psychotic features Qualified Code(s): F33.3 - Major depressive disorder, recurrent, severe with psychotic symptoms (5) ADHD Attention deficit-hyperactivity disorder type: unspecified Qualified Code(s): F90.9 - Attention-deficit hyperactivity disorder, unspecified type
--- NOTE | 2024-09-17 10:52 | Discharge Summary ---
Date of Service September 17, 2024 History of Present Illness The patient reports she has been ruminating about negative thoughts. Reports sleep difficulties for the past 3 weeks. Endorses low energy, appetite loss, low mood, "lethargic", feelings of hopelessness and worthlessness. Endorses that time passes her by she does not even realize it. Reports onset of distressing voices. Voices are people that are familiar to her and they are often derogatory in nature, are laughing at her, or instructing harm. Ellis etimes demonic in nature. These voices have been worse the last 3 days and are worse with anxiety. Reports having panic attacks of 2-3 a month. Reports symptoms have escalated since she started cleaning and came across her mother's possessions and this reignited memories of her. Reports that her mother in 2021 after struggling with health problems and suddenly had a heart attack. Her mother was in her arms when it happened and she felt it was sudden. Patient becomes tearful when attempting to discuss this and is unable to discuss this any further. Says that she did not fully grieve her . Reports that her grandmother a decade prior and this was also unexpected. reports anxiety triggers of hearing loud noises or arguments and causes her to feel paralyzed. Listening to songs that her mother loved brings back memories and is an additional trigger. She denies having a drug or alcohol problem. Denies SI, HI. Reports on-going AH this morning however decreased in severity. No dissociation today. Motor tics on face resolved. Physical Exam Vital Signs (Past 24 Hours) Last Vital Signs Temp 36.6 C 09/17/24 06:14 Pulse 81 09/17/24 06:15 Resp 16 09/17/24 06:14 BP 78/54 L 09/17/24 06:15 Pulse Ox 98 09/12/24 06:00 O2 Del Method Room Air 09/12/24 06:00 Principal Diagnosis By history, MDD with Psychosis r/o Bipolar Type II Post traumatic stress disorder. By history, MARCELO, ADHD. r/o Cluster B traits. By history, alcohol and drug use in remission. Psychiatric Data See daily stay summary. In short, safety was maintained and the patient was cooperative with care. Medication changes included stopping Buproprion, starting Effexor and titrating to 150mg daily and Prazosin 1mg qhs for nightmares. Adderall held on admission and Bupropion was stopped. Psychotic and trauma symptoms resolved fairly soon after admission. She engaged in unit and group activities and tolerated both medication and groups. A family session was held on 09/17/24 and safety plan was completed prior to discharge. Day of Discharge Assessment Today the patient voices readiness for discharge. They note improvement in mood and deny thoughts to harm self or others. Thoughts remain organized and they are improved from admission. There is no evidence of psychosis. They agree to take mediations as prescribed and keep follow-up appointments. They are stable for discharge to outpatient level of care. Transition of Care Transition Of Care Record: was reviewed with the patient Advance Directives Advance Directives Information Provided: Yes Advance Directives: No Mental Health Advance Directive: No Living Will: No Power of Textile Pin Worker: No Advance Directives Reason:: Declines as Mental Health Visit. Risk Factors Assessment Male: No : Yes Do You Have Access To A Gun?: Yes Health Problems: No Mental Health Diagnoses: Yes Substance Use Disorders: No Previous Attempt: No Family History of Suicide: No Previous Psychiatric Hospitalization: No Hopelessness: Yes Protective Factors Assessment Samaritan Beliefs: No : No Responsible for Young Children: No Employed: No Stable Relationships: Yes Supportive Family: Yes Good Rapport with Provider: Yes Absence of Any Risk Factors Above: No Discharge Data Consultations 09/10/24 00:50 ED Decision to Admit Stat Lab Results 09/09/24 09/11/24 21:07 06:50 WBC 11.81 H RBC 4.57 Hgb 14.5 Hct 42.8 MCV 93.7 MCH 31.7 MCHC 33.9 RDW Std Deviation 41.0 RDW Coeff of Osiris 11.9 Plt Count 407 H MPV 10.0 Immature Gran % (Auto) 0.3 Neut % (Auto) 55.1 Lymph % (Auto) 34.1 Crisp % (Auto) 9.3 Eos % (Auto) 0.6 Baso % (Auto) 0.6 Neut # (Auto) 6.51 H Lymph # (Auto) 4.03 H Crisp # (Auto) 1.10 H Eos # (Auto) 0.07 Baso # (Auto) 0.07 Immature Gran # (Auto) 0.03 Sodium 140 Potassium 3.7 Chloride 104 Carbon Dioxide 28 Anion Gap 8 BUN 13 Creatinine 1.02 Est Cr Clr Drug Dosing 77.7 eGFR 73.58 BUN/Creatinine Ratio 12.7 Glucose 67 L Estimat Average Glucose 105 Hemoglobin A1c 5.3 Calcium 9.1 Total Bilirubin 0.4 AST 16 ALT 16 Alkaline Phosphatase 47 Total Protein 7.7 Albumin 4.6 Globulin 3.1 Albumin/Globulin Ratio 1.5 Triglycerides 116 Cholesterol 151 LDL Cholesterol, Calc 82 VLDL Cholesterol, Calc 23 HDL Cholesterol 46 Cholesterol/HDL Ratio 3.3 25-OH Vitamin D Total 53.8 TSH 1.886 HCG, Qual Negative Urine Color Yellow Urine Appearance Cloudy A Urine pH 5.0 Ur Specific [place] 1.035 H Urine Protein Trace H Urine Glucose (UA) Negative Urine Ketones Trace H Urine Blood Trace H Urine Nitrite Negative Urine Bilirubin Negative Urine Urobilinogen Negative Ur Leukocyte Esterase Negative Urine WBC (Auto) 0-5 Urine RBC (Auto) 0-2 U Hyaline Cast (Auto) 0-2 U Epithel Cells (Auto) 11-20 H Urine Bacteria (Auto) None Seen Calcium Oxalate Crystal Present A Salicylates < 3.0 L Urine Opiates Screen Neg Ur Methadone, Qual Neg Urine Fentanyl Screen Neg Acetaminophen < 3 L Urine Barbiturates Neg Ur Phencyclidine (PCP) Neg U Amphetamin/Meth Scrn Neg Urine MDEA negative MDMA (Ecstasy) Screen Pos H MDMA negative Urine MDMA negative U Benzodiazepines Scrn Neg Ur Cocaine Metabolite Neg U Marijuana (THC) Screen Neg Ethyl Alcohol mg/dL < 10.0 SARS-CoV-2, RNA, NAAT NEGATIVE Hospital Course (1) Auditory hallucinations: Will continue to closely monitor. (2) Insomnia: (3) Post traumatic stress disorder (PTSD): Endorses flashbacks. (4) MDD (major depressive disorder), recurrent episode, severe: (5) ADHD: Plan 09/17/24: Discharge today on Effexor XR 150mg daily Prazosin 1mg po qhs. Reduced Trazodone to 25mg qhs prn insomnia. Monitor for postural hypotension Stopped Lorazepam 0.5mg q pm given resolution of anxiety symptoms. May resume Adderall (she reported longstanding use and benefit from this); recommended working with an outpatient psychiatrist to continue. 09/16/24: Increased Effexor to 150mg daily. Continue Prazosin 1mg qhs, Trazodone 50mg qhs. Monitor BP. 09/15/24: Continue current medication (Effexor 112.5mg daily, Prazosin 1 mg qhs). Discharge planning. 09/14/24: Continue medication at current doses. 09/13/24: Increase Effexor to 112.5mg daily. Add Prazosin 1 mg qhs for nightmares. Discussed risks, benefits and side effects, including hypotension. 09/12/24: Continue current medication and current level of observation. 09/11/2024: Decrease lorazepam to 0.5 mg at bedtime and 0.5 mg as needed. Increase venlafaxine ER to 75 mg daily. Continue trazodone. 09/10/24:The patient was admitted to the [facility] ([facility]) on q15 min checks (behavioral with suicide precautions) for safety. The patient will participate in group, recreational, and milieu therapies and will be offered additional individual and family sessions as clinically appropriate. -Hold home Bupropion, Amphetamines -Start Venlfaxine ER 37.5mg QD -Start Lorazepam 1mg HS -Start Trazodone 50mg HS -Lorazepam 1mg Q6H PRN for anxiety -Labs: HgbA1C, fasting lipids, Vit D -Questionnaires: Gray borderline personality screener, MARCELO-7, international trauma questionnaire, BALA questionnaire Mental Health & Subst Abuse Tx Psychiatrist Name of Psychiatrist: Eleanor Psychiatrist's Therapist Name of Therapist: N/A Cloth Presser Name of Cloth Presser: N/A Post Discharge Appointments Primary Care Physician Name Of Family Doctor/PCP: [facility] - Dr. Washburn Primary Care Date of Future Appointment with PCP: 2025 Provider Appointment Comment: Follow up as needed Contact Information Discharge Discharge Address: [address] [place] [address] Discharge Plan Discharge Items Patient Disposition: Home - Self-Care Reason For Visit: UNSPECIFIED DEPRESSIVE DISORDER Discharge Diagnosis: By history, MDD with Psychosis r/o Bipolar Type II Post traumatic stress disorder. By history, MARCELO, ADHD. r/o Cluster B traits. By history, alcohol and drug use in remission. Condition on Discharge: Good Health Concerns: None Lifting: Gradually increase as tolerated Bathing: No limitations Sexual Activity: When tolerated Exercise/Sports: None Driving/Machine Use: No limitations Weightbearing: Full weightbearing Non-emergency contact: Primary Care Provider and Psychiatrist Call non-emergency contact if: you have any medication questions and your sympt oms worsen Follow-up/Referrals: Suri Cheng MD [Primary Care Provider] - Diet: Regular Fluids: 2000ml (8 cups) Addtl Attending Provider Instructions: Encouraged establishing care with an outpatient psychiatrist for follow up. Continue medications as scheduled. Inform outpatient providers if planning . Pending Studies at Discharge: No Stand-Alone Forms: My [facility], Smoking Cessation Medications and DC Order Prescriptions: New prazosin 1 mg Capsule 1 mg PO HS 30 Days Qty: 30 0RF venlafaxine 150 mg Capsule,Extended Release 24hr 150 mg PO QAM 30 Days Qty: 30 0RF trazodone 50 mg Tablet 25 mg PO HS MDD 25 mg PRN (Reason: insomnia) 30 Days Qty: 15 0RF Continued dextroamphetamine-amphetamine [Adderall XR] 30 mg capsule,extended release 24hr 30 mg PO QAM Qty: 30 0RF Discontinued lorazepam [Ativan] 0.5 mg tablet 0.5 mg PO DAILY PRN (Reason: anxiety) fluoxetine [Prozac] 20 mg capsule 20 mg PO DAILY bupropion HCl [Wellbutrin XL] 150 mg tablet extended release 24 hr 150 mg PO QAM Discharge Orders: Discharge Order (Routine); Ordered 09/17/24 Ordered By: Silke Sierra Admission Data Admit Date/Time: 09/10/24 01:16 Attending Provider: Nakul Hassan Admit Provider: Nakul Hassan Primary Care Provider: Suri Cheng Other Providers: Nakul Hassan Other Interventions: Discharge Summary Assessment (RN) Last Done: 09/17/24 12:15 PSY Interdisciplinary Discharge Planning Last Done: 09/17/24 12:15 Coding Level of Care Code 21628 D/C day mgmt > 30 min Diagnoses Auditory hallucinations R44.0 Insomnia, unspecified type G47.00 Insomnia type: unspecified Post traumatic stress disorder (PTSD) F43.10 Severe episode of recurrent major depressive disorder, with psychotic features F33.3 Psychotic features: with psychotic features Attention deficit hyperactivity disorder (ADHD), unspecified ADHD type F90.9 Attention deficit-hyperactivity disorder type: unspecified
--- NOTE | 2024-09-17 11:07 | Psychiatric Progress Note ---
Date of Service September 17, 2024 Impression / Recommendations Impression 34-year-old F who currently lives in with boyfriend, admitted on 09/10/24 on a 201 voluntary commitment for worsening anxiety, dissociative symptoms, auditory hallucinations, motor tics, sleep dysfunction in the context of flashbacks of her mother who unexpectedly in her arms in 2021 from a myocardial infarction. Episode was triggered by organizing her mom's belongings. Discharge diagnoses: By history Generalized Anxiety Disorder, Major Depressive Disorder, ADHD. Post Traumatic Stress Disorder MDD recurrent, severe, with Psychosis vs Bipolar Disorder Type II vs MDD. r/o Cluster B personality traits (history of cutting in early teens, recurrent emergence of psychotic symptoms under conditions of stress). Remote history of alcohol and drug use, in full sustained remission. Overall, I spent a total of 40 minutes with this case including review of chart records, nursing report, direct evaluation of the patient at bedside, counseling the patient, multidisciplinary team meeting, orders, and documentation in the electronic health record. (1) Auditory hallucinations: (2) Insomnia: (3) Post traumatic stress disorder (PTSD): (4) MDD (major depressive disorder), recurrent episode, severe: (5) ADHD: Plan 09/17/24 Switch Trazodone to prn as may interact with Prazosin to lower BP. Continue Effexor 150mg daily, Prazosin 1mg qhs. Stopped Lorazepam as anxiety is better controlled. Reduced Trazodone to 25 mg po qhs prn. Discharge today. Inventory Assets Strengths: fair insight, intelligent Needs: outpatient connection, trauma counseling Suicide Risk Level Suicide Risk Level: Low (q15 min observation checks) Risk Factors Assessment Male: No : Yes Do You Have Access To A Gun?: Yes Health Problems: No Mental Health Diagnoses: Yes Substance Use Disorders: No Previous Attempt: No Family History of Suicide: No Previous Psychiatric Hospitalization: No Hopelessness: Yes Protective Factors Assessment Mandaen Beliefs: No : No Responsible for Young Children: No Employed: No Stable Relationships: Yes Supportive Family: Yes Good Rapport with Provider: Yes Absence of Any Risk Factors Above: No Interval History Identifying Information 34-year-old F with a lengthy psychiatric history, and diagnoses of PTSD, MARCELO, MDD, ADHD. She was admitted on 09/10/24 01:16 on a 201 voluntary commitment for worsening anxiety, dissociative symptoms, auditory hallucinations, motor tics, sleep dysfu nction in the context of flashbacks of her mother who unexpectedly in her arms in 2021 from a myocardial infarction. Chief Complaint "I am doing well". Review of Systems Sleep Information Total Hours of Sleep: 7.5 Sleep Comments: 6.5 Meal Information Percent Meal Consumed - Breakfast: 100 Percent Meal Consumed - Lunch: 80 Percent Meal Consumed - Dinner: 100 Subjective Subjective Patient was seen & assessed and interval progress reviewed with treatment team. She slept well last night and has no new complaints. Mood is reported as 8/10 with no symptoms or signs of depression at this time. No symptoms of remington/hypomania reported at any time during this hospitalization. She denied flashbacks, nightmares or dissociative episodes. She denied any hallucinations or other psychotic symptoms over the last 3 days. Denied orthostatic symptoms, despite low BP. She reports she has had low BP on trazodone in the past. She is future oriented and endorses readiness for discharge. Physical Exam Mental Examination Appearance: Well Groomed (No abnormal behavior.) Eye Contact: Maintains Eye Contact Motor Behavior: Unremarkable ( No psychomotor agitation or retardation. ) Speech: Normal Mood: Euthymic and Calm Affect: Calm and Congruent Thought Process: Intact and Linear Thought Content: Intact, Goal Oriented and Logical Hallucinations: None Insight: Fair Judgement: Fair Vital Signs (Past 24 Hours) Last Vital Signs Temp 36.6 C 09/17/24 06:14 Pulse 81 09/17/24 06:15 Resp 16 09/17/24 06:14 BP 78/54 L 09/17/24 06:15 Pulse Ox 98 09/12/24 06:00 O2 Del Method Room Air 09/12/24 06:00 Results & Data ([facility]) Current Inpatient Medications Current Inpatient Medications: Current Inpatient Medications Acetaminophen (Acetaminophen 325 Mg Tab) 650 mg PO Q4H PRN PRN Reason: Headache or Minor Fever Stop: 10/10/24 01:36 Al Hydrox/Mg Hydrox/Simethicone (Aluminum/Magnesium Susp 30 Ml Udc) 30 ml PO Q4H PRN PRN Reason: GI Upset Stop: 10/10/24 01:36 Bismuth Subsalicylate (Bismuth Subsalicylate 262 Mg Chew) 2 tab PO Q30M PRN PRN Reason: Loose Stool/Diarrhea Stop: 10/10/24 01:36 Calcium Carbonate (Calcium Carbonate 500 Mg Chewable Tab) 1,000 mg PO TID PRN PRN Reason: Indigestion Stop: 10/10/24 16:19 Hydroxyzine HCl (Hydroxyzine Hcl 25 Mg Tab) 50 mg PO Q6H PRN PRN Reason: anxiety, insomnia Stop: 10/10/24 13:30 Last Admin: 09/16/24 21:03 Dose: 50 mg Lorazepam (Lorazepam 0.5 Mg Tab) 0.5 mg PO PM ANA LILIA Stop: 10/11/24 20:59 Last Admin: 09/16/24 21:02 Dose: 0.5 mg Lorazepam (Lorazepam 0.5 Mg Tab) 0.5 mg PO Q6 PRN PRN Reason: Anxiety Stop: 10/10/24 01:43 Magnesium Hydroxide (Magnesium Hydroxide Susp 30 Ml Udc) 30 ml PO DAILY PRN PRN Reason: Constipation Stop: 10/10/24 01:36 Prazosin HCl (Prazosin Hcl 1 Mg Cap) 1 mg PO HS ANA LILIA Stop: 10/13/24 21:59 Last Admin: 09/16/24 21:04 Dose: 1 mg Sodium Chloride (Sodium Chloride 0.65% Na Soln 45 Ml ([place])) 1 - 2 sprays NA PRN PRN PRN Reason: Nasal Dryness/Congestion Stop: 10/10/24 01:36 Last Admin: 09/13/24 21:54 Dose: 2 sprays Venlafaxine HCl (Venlafaxine Hcl Xr 150 Mg Capxr) 150 mg PO QAM ANA LILIA Stop: 10/16/24 08:59 Last Admin: 09/17/24 08:38 Dose: 150 mg Mental Health & Subst Abuse Tx Psychiatrist Name of Psychiatrist: Eleanor Psychiatrist's Therapist Name of Therapist: N/A Prenatal Teacher Name of Prenatal Teacher: N/A Post Discharge Appointments Primary Care Physician Name Of Family Doctor/PCP: [facility] - Dr. Washburn Primary Care Date of Future Appointment with PCP: 2025 Provider Appointment Comment: Follow up as needed Contact Information Discharge Discharge [address]: [address] [place] [address] (2) Insomnia Insomnia type: unspecified Qualified Code(s): G47.00 - Insomnia, unspecified (4) MDD (major depressive disorder), recurrent episode, severe Psychotic features: with psychotic features Qualified Code(s): F33.3 - Major depressive disorder, recurrent, severe with psychotic symptoms (5) ADHD Attention deficit-hyperactivity disorder type: unspecified Qualified Code(s): F90.9 - Attention-deficit hyperactivity disorder, unspecified type
[2024-09-17 12:21] VITALS: BP 81/46; PULSE 70
[2024-09-17] MEDS ORDERED: traZODone HCL 50 MG TAB PO SCH (12:30)
[2024-09-17] MEDS ORDERED: traZODone HCL 50 MG TAB PO PRN (12:34)
== END 2024-09-17 13:50 | disposition home or self-care (01) | DRG 885 ==
LOC: ED 20:39 → 3S 09-10 01:16